=== PATIENT | female | born 1965 | race Caucasian/White ===

== ENCOUNTER 2023-12-29 15:20 | Inpatient (IN) ==
--- NOTE | 2023-12-29 16:17 | Emergency Department Note ---
Impression & Plan Suicidal ideations, Mood disorder, Paranoid ED Provider Note NAME: MANDY CAZARES AGE: 58 SEX: F : 1965 ARRIVES VIA: Walk-In INFORMANT: Patient ED PROVIDER(S): Ganesh Aggarwal DO CHIEF COMPLAINT: depression HPI: Patient is a 58-year-old female with MS who presents to the ER for suicidal ideations with a plan. She notes she has thought about it and would hang herself but she is not 100% sure she could go through with it. She admits to some auditory/visual hallucinations but will not elaborate anymore. She notes she has been depressed for several months but has gotten significant worse over the past 2 weeks. She saw her PCP today and was referred in here due to the suicidal statements. ADDITIONAL HISTORY OBTAINED: provides additional history and notes that patient admitted that she wanted to kill herself. Chronic Medical/Social Conditions Affecting Care: Per HPI PAST MEDICAL HISTORY:See Below PAST SURGICAL HISTORY:See Below FAMILY HISTORY:See Below SOCIAL HISTORY:See Below HOME MEDICATIONS:See Below ALLERGIES:See Below VITALS:See Below PHYSICAL EXAMINATION: GENERAL: Sitting up in bed, alert, well appearing, well nourished, no distress, non-toxic EYE EXAM: normal conjunctiva. OROPHARYNX: no exudate, no erythema, lips, buccal mucosa, and tongue normal and mucous membranes are moist NECK: supple, no nuchal rigidity, no adenopathy, non-tender LUNGS: Clear to auscultation. Normal chest wall mechanics HEART: no murmurs, S1 normal and S2 normal ABDOMEN: abdomen soft, non-tender, normo-active bowel sounds, no masses, no rebound or guarding. UPPER EXTREMITIES: upper extremities are grossly normal. LOWER EXTREMITIES: No pitting edema. NEURO EXAM: Normal sensorium, cranial nerves II-XII grossly intact, normal speech, no gross weakness of arms, no gross weakness of legs. PSYCH: Admits to suicidal ideations with a plan as described above as well as hallucinations. MEDICAL DECISION MAKING: Patient is a 58-year-old female who presents ER for above-stated complaint. Blood work was obtained and showed no significant leukocytosis or anemia. BMP with LFTs bilirubin and TSH was unremarkable. UA shows no infection. was negative. Tox was clean. Alcohol negative. Patient did not want to come in and did not believe that she needed inpatient treatment. She was evaluated by our psychiatric resident care aid. Patient was referred to 3 [facility]. and patient was accepted and admitted on a 302. Consults/Care Managements Discussions: Per MDM Triage Nursing notes reviewed. Limited review of prior medical records performed Vital Signs: reviewed and remarkable for hypertension Differential diagnosis: Mood disorder, infection, hypoglycemia, electrolyte abnormalities, cardiac sources, intracerebral event, toxicologic, trauma, neurologic, as well as other pathologies. ER treatment provided: See below Diagnostics interpreted by me include EKG and cardiac monitoring as listed below: -ECG: None -Laboratory studies:Interpreted by me as stated above in MDM and shown below. Imaging studies: Xrays: As interpreted by me: None CTs show: None Procedures: None Critical Care: None Past Med/Surg History Problem List (Updated 12/30/23 @ 17:16 by Charlene Jimenez MD) Unspecified psychosis not due to a substance or known physiological condition Paranoid (Acute) Mood disorder (Acute) Suicidal ideations (Acute) Insomnia (Acute) AMS (altered mental status) (Acute) KARAN positive Demyelinating disease Headache Neurologic gait disorder Cervical spinal stenosis Neuropathy Paresthesias Myelopathy Carpal tunnel syndrome, right Ulnar neuropathy at elbow of left upper extremity LGSIL on Pap smear of cervix Spondylolisthesis of lumbar region Lumbar radiculopathy Migraine headache (Acute) Neuropathy, peripheral (Chronic) Osteoarthritis (Acute) ASCUS with positive high risk HPV cervical (Acute) Multiple sclerosis Medical History Retinal detachment Surgical History History of cryosurgery History of dilatation and curettage History of wisdom tooth extraction Family History Mother Uterine cancer Denies family history of Ovarian cancer Breast cancer Colorectal cancer Social History Smoking Status: Never smoker Hx Alcohol Use: Yes Hx Substance Use: No Preferred Language: Norwegian Communication Ability: Effective Change Over Required: No Beliefs That Will Affect Care: None Current Living Situation: Spouse Feels Safe at Home: Yes Gender Identity: Female Assistive Devices: None Allergies Allergies Allergy/AdvReac Type Severity Reaction Status Date / Time Sulfa (Sulfonamide AdvReac Mild Verified 12/23/23 14:49 Antibiotics) Home Meds Home Medications Medication Instructions Recorded Confirmed melatonin 10 mg tablet 10 mg PO HS PRN Sleep 11/28/19 12/29/23 cholecalciferol (vitamin D3) 50 50 mcg PO DAILY 04/10/23 12/29/23 mcg (2,000 unit) capsule ocrelizumab 30 mg/mL intravenous 0 mg IV UD 12/22/23 12/29/23 solution (Ocrevus) omeprazole 20 mg capsule,delayed 20 mg PO DAILY 12/22/23 12/29/23 release zolpidem 10 mg tablet 10 mg PO HS PRN Sleep 12/22/23 12/29/23 trazodone 50 mg tablet 50 mg PO HS PRN insomnia 12/29/23 12/29/23 Results & Data (ED) Vital Signs Vital Signs - 24 hr 12/29/23 15:33 12/29/23 18:41 12/29/23 21:08 Temperature 36.8 C 36.4 C L Temperature Source Temporal Artery Scan Oral Pulse Rate 67 Pulse Rate [Apical] 66 90 Pulse Rhythm Regular Pulse Rhythm [Apical] Regular Pulse Strength Normal Pulse Strength [Apical] Normal Respiratory Rate 18 20 19 Respiratory Effort / Characteristics Non-Labored Spontaneous Non-Labored Spontaneous Non-Labored Spontaneous Respiratory Depth Normal Normal Normal Respiratory Pattern Regular Blood Pressure 140/78 Blood Pressure [Left Arm] 129/64 101/68 Blood Pressure Mean 98 Blood Pressure Mean [Left Arm] 85 79 Blood Pressure Position Sitting Pulse Oximetry 97 97 99 Oxygen Delivery Method Room Air Room Air Room Air Sepsis Recent Fever Within 48 Hours No Sepsis New/Unexplained Change in Mental Status No Sepsis Action Taken by Nursing No Action Required Laboratory Data 12/29/23 16:08 12/29/23 16:08 Lab Results 12/29/23 12/29/23 12/29/23 Range/Units 15:41 15:56 16:08 WBC 8.12 (4.8-10.8) K/ul RBC 5.54 H (4.20-5.40) M/uL Hgb 15.9 (12.0-16.0) g/dl Hct 49.0 H (37.0-47.0) % MCV 88.4 (80.0-100.0) fL MCH 28.7 (25.0-34.0) pg MCHC 32.4 (32.0-36.0) g/dL RDW Std Deviation 40.6 (36.4-46.3) fL RDW Coeff of Jeffrey 12.5 (11.5-14.5) % Plt Count 266 (130-400) K/uL MPV 12.3 (9.4-12.4) fL Immature Gran % (Auto) 0.4 % Neut % (Auto) 79.8 % Lymph % (Auto) 12.6 % [place] % (Auto) 6.5 % Eos % (Auto) 0.2 % Baso % (Auto) 0.5 % Neut # (Auto) 6.48 (1.40-6.50) K/uL Lymph # (Auto) 1.02 L (1.20-3.40) K/uL [place] # (Auto) 0.53 (0.11-0.59) K/uL Eos # (Auto) 0.02 (0.00-0.50) K/uL Baso # (Auto) 0.04 (0.00-0.20) K/uL Immature Gran # (Auto) 0.03 (0.01-0.20) K/uL Sodium 141 (136-145) mmol/L Potassium 3.8 (3.5-5.1) mmol/L Chloride 103 (98-107) mmol/L Carbon Dioxide 27 (21-32) mmol/L Anion Gap 11 (3-11) BUN 22 (6-23) mg/dl Creatinine 0.68 (0.6-1.2) mg/dl Est Cr Clr Drug Dosing 63.1 ml/min Est GFR ( Amer) 111.8 ml/min Est GFR (Non-Af Amer) 96.4 ml/min BUN/Creatinine Ratio 32.4 H (10-20) Glucose 79 (70-99(Fasting)) mg/dl Calcium 10.4 H (8.6-10.3) mg/dl Total Bilirubin 0.8 (0.2-1.0) mg/dl AST 17 (13-39) U/L ALT 17 (7-52) U/L Alkaline Phosphatase 43 (34-104) U/L Total Protein 7.7 (6.0-8.3) gm/dl Albumin 5.0 (3.4-5.0) gm/dl Globulin 2.7 (2.5-4.0) gm/dl Albumin/Globulin Ratio 1.9 (0.9-2) TSH 1.952 (0.300-4.500) uIu/ml Urine Color Yellow Urine Appearance Cloudy A (Clear) Urine pH 5.5 (4.5-7.5) Ur Specific [place] 1.033 H (1.000-1.030) Urine Protein Trace H (Negative) Urine Glucose (UA) Negative (Negative) Urine Ketones 2+ H (Negative) Urine Blood Negative (Negative) Urine Nitrite Negative (Negative) Urine Bilirubin Negative (Negative) Urine Urobilinogen Negative (Negative) Ur Leukocyte Esterase 1+ H (Negative) Urine WBC (Auto) 0-5 (0-5) /hpf Urine RBC (Auto) 0-2 (0-2) /hpf U Hyaline Cast (Auto) 3-5 H (0-2) /lpf U Epithel Cells (Auto) 3-5 H (0-2) /hpf Urine Bacteria (Auto) None Seen (None Seen) Urine Mucus Present A (None Prsent) POC Ur Test NEG (NEG) Salicylates < 3.0 L (3.0-30) mg/dl Urine Opiates Screen Neg (Neg) Ur Methadone, Qual Neg (Neg) Urine Fentanyl Screen Neg (Neg) Acetaminophen < 3 L (10-30) ug/ml Urine Barbiturates Neg (Neg) Ur Phencyclidine (PCP) Neg (Neg) U Amphetamin/Meth Scrn Neg (Neg) MDMA (Ecstasy) Screen Neg (Neg) U Benzodiazepines Scrn Neg (Neg) Ur Cocaine Metabolite Neg (Neg) U Marijuana (THC) Screen Neg (Neg) Ethyl Alcohol mg/dL < 10.0 (<10.0) mg/dl SARS-CoV-2, RNA, NAAT (NEGATIVE) 12/29/23 Range/Units 16:10 WBC (4.8-10.8) K/ul RBC (4.20-5.40) M/uL Hgb (12.0-16.0) g/dl Hct (37.0-47.0) % MCV (80.0-100.0) fL MCH (25.0-34.0) pg MCHC (32.0-36.0) g/dL RDW Std Deviation (36.4-46.3) fL RDW Coeff of Jeffrey (11.5-14.5) % Plt Count (130-400) K/uL MPV (9.4-12.4) fL Immature Gran % (Auto) % Neut % (Auto) % Lymph % (Auto) % [place] % (Auto) % Eos % (Auto) % Baso % (Auto) % Neut # (Auto) (1.40-6.50) K/uL Lymph # (Auto) (1.20-3.40) K/uL [place] # (Auto) (0.11-0.59) K/uL Eos # (Auto) (0.00-0.50) K/uL Baso # (Auto) (0.00-0.20) K/uL Immature Gran # (Auto) (0.01-0.20) K/uL Sodium (136-145) mmol/L Potassium (3.5-5.1) mmol/L Chloride (98-107) mmol/L Carbon Dioxide (21-32) mmol/L Anion Gap (3-11) BUN (6-23) mg/dl Creatinine (0.6-1.2) mg/dl Est Cr Clr Drug Dosing ml/min Est GFR ( Amer) ml/min Est GFR (Non-Af Amer) ml/min BUN/Creatinine Ratio (10-20) Glucose (70-99(Fasting)) mg/dl Calcium (8.6-10.3) mg/dl Total Bilirubin (0.2-1.0) mg/dl AST (13-39) U/L ALT (7-52) U/L Alkaline Phosphatase (34-104) U/L Total Protein (6.0-8.3) gm/dl Albumin (3.4-5.0) gm/dl Globulin (2.5-4.0) gm/dl Albumin/Globulin Ratio (0.9-2) TSH (0.300-4.500) uIu/ml Urine Color Urine Appearance (Clear) Urine pH (4.5-7.5) Ur Specific [place] (1.000-1.030) Urine Protein (Negative) Urine Glucose (UA) (Negative) Urine Ketones (Negative) Urine Blood (Negative) Urine Nitrite (Negative) Urine Bilirubin (Negative) Urine Urobilinogen (Negative) Ur Leukocyte Esterase (Negative) Urine WBC (Auto) (0-5) /hpf Urine RBC (Auto) (0-2) /hpf U Hyaline Cast (Auto) (0-2) /lpf U Epithel Cells (Auto) (0-2) /hpf Urine Bacteria (Auto) (None Seen) Urine Mucus (None Prsent) POC Ur Test (NEG) Salicylates (3.0-30) mg/dl Urine Opiates Screen (Neg) Ur Methadone, Qual (Neg) Urine Fentanyl Screen (Neg) Acetaminophen (10-30) ug/ml Urine Barbiturates (Neg) Ur Phencyclidine (PCP) (Neg) U Amphetamin/Meth Scrn (Neg) MDMA (Ecstasy) Screen (Neg) U Benzodiazepines Scrn (Neg) Ur Cocaine Metabolite (Neg) U Marijuana (THC) Screen (Neg) Ethyl Alcohol mg/dL (<10.0) mg/dl SARS-CoV-2, RNA, NAAT NEGATIVE (NEGATIVE) Administered Medications Hydroxyzine HCl (Hydroxyzine Hcl 25 Mg Tab) 50 mg PO HSZ PRN PRN Reason: Insomnia Stop: 01/28/24 23:58 Last Admin: 12/31/23 00:39 Dose: 50 mg Documented By: Admin: 12/30/23 01:59 Dose: 50 mg Documented By: Admin: 12/30/23 00:42 Dose: 50 mg Documented By: JENNIFER Pantoprazole Sodium (Pantoprazole 40 Mg Tab) 40 mg PO DAILY [facility] Stop: 01/29/24 09:29 Last Admin: 12/31/23 08:44 Dose: 40 mg Documented By: Admin: 12/30/23 10:11 Dose: 40 mg Documented By: [email or web address] Risperidone (Risperidone 0.5 Mg Tablet) 0.5 mg PO BID CLAU Stop: 01/29/24 20:59 Last Admin: 12/30/23 20:24 Dose: 0.5 mg Documented By: VIDA Sertraline HCl (Sertraline Hcl 50 Mg Tablet) 50 mg PO QAM CLAU Stop: 01/30/24 08:59 Last Admin: 12/31/23 08:45 Dose: 50 mg Documented By: ZACK Vitamin D (Cholecalciferol 25 Mcg (1000 Units) Tab) 50 mcg PO DAILY CLAU Stop: 01/29/24 09:29 Last Admin: 12/31/23 08:44 Dose: 50 mcg Documented By: Admin: 12/30/23 10:11 Dose: 50 mcg Documented By: MUKESH Discharge Plan Visit Data Chief Complaint: Mental Health Evaluation Stated Complaint: REF BY DOC FOR E ED Provider: Ganesh Aggarwal Discharge Problem: Suicidal ideations, Mood disorder, Paranoid Patient Disposition: Admitted As Inpatient Discharge Instructions Interventions: ED Discharge Assessment Last Done: 12/29/23 23:30
[2023-12-29 16:28] LABS: Basophils # (auto) 0.04 K/uL (0.00-0.20); Basophils % (auto) 0.5 %; Eosinophils # (auto) 0.02 K/uL (0.00-0.50); Eosinophils % (auto) 0.2 %; Hemoglobin 15.9 g/dl (12.0-16.0); Immature Granulocytes # (auto) 0.03 K/uL (0.01-0.20); Immature Granulocytes % (auto) 0.4 %; Lymphocytes # (auto) 1.02 K/uL (1.20-3.40); Lymphocytes % (auto) 12.6 %; Mean Corpuscular Hemoglobin 28.7 pg (25.0-34.0); Mean Corpuscular Hgb Conc 32.4 g/dL (32.0-36.0); Mean Corpuscular Volume 88.4 fL (80.0-100.0); Mean Platelet Volume 12.3 fL (9.4-12.4); Monocytes # (auto) 0.53 K/uL (0.11-0.59); Monocytes % (auto) 6.5 %; Neutrophils # (auto) 6.48 K/uL (1.40-6.50); Neutrophils % (auto) 79.8 %; Platelet Count 266 K/uL (130-400); RDW Coefficient of Variation 12.5 % (11.5-14.5); RDW Standard Deviation 40.6 fL (36.4-46.3); Red Blood Count 5.54 M/uL (4.20-5.40); White Blood Count 8.12 K/ul (4.8-10.8)
[2023-12-29 16:30] LABS: Appearance Urine Cloudy (Clear); Bacteria Urine Automated None Seen (None Seen); Bilirubin Urine Negative (Negative); Blood Urine Negative (Negative); Color Urine Yellow; Glucose Urine UA Negative (Negative); Ketones Urine 2+ (Negative); Leukocyte Esterase Urine 1+ (Negative); Mucus Urine Present (None Prsent); Nitrite Urine Negative (Negative); Protein Urine Trace (Negative); RBC Urine Automated 0-2 /hpf (0-2); Specific Gravity Urine 1.033 (1.000-1.030); Urobilinogen Urine Negative (Negative); WBC Urine Automated 0-5 /hpf (0-5); pH Urine 5.5 (4.5-7.5)
[2023-12-29 16:35] LABS: Bilirubin,Total 0.8 mg/dl (0.2-1.0); Calcium 10.4 mg/dl (8.6-10.3); Potassium 3.8 mmol/L (3.5-5.1)
[2023-12-29 16:41] LABS: Acetaminophen < 3 ug/ml (10-30); Albumin Globulin Ratio 1.9 (0.9-2); BUN Creatinine Ratio 32.4 (10-20); Creatinine Clr Calc Pharmacy 63.1 ml/min; Est GFR (African American) 111.8 ml/min; Est GFR (Non-African American) 96.4 ml/min; Globulin 2.7 gm/dl (2.5-4.0); Salicylate < 3.0 mg/dl (3.0-30); Total Protein 7.7 gm/dl (6.0-8.3)
[2023-12-29 16:54] LABS: Thyroid Stimulating Hormone 1.952 uIu/ml (0.300-4.500)
[2023-12-29 17:04] LABS: Amphetamines+Metham, Urine Neg (Neg); Barbiturates, Urine Neg (Neg); Benzodiazepine, Urine Neg (Neg); Cocaine, Urine Neg (Neg); Fentanyl, Urine Neg (Neg); MDMA (Ecstacy), Urine Neg (Neg); Marijuana, Urine Neg (Neg); Methadone, Urine Neg (Neg); Opiate, Urine Neg (Neg); Phencyclidine, Urine Neg (Neg)
[2023-12-29] MEDS ORDERED: BISMUTH SUBSALICYLATE LIQD 236 ML PO PRN (23:59)
[2023-12-29] MEDS ORDERED: SODIUM CHLORIDE 0.65% NA SOLN 45 ML (OCEAN) PRN (23:59)
[2023-12-29] MEDS ORDERED: MAGNESIUM HYDROXIDE SUSP 30 ML UDC PO PRN (23:59)
[2023-12-29] MEDS ORDERED: ALUMINUM/MAGNESIUM SUSP 30 ML UDC PO PRN (23:59)
[2023-12-29] MEDS ORDERED: hydrOXYzine HCl 25 MG TAB PO PRN (23:59)
[2023-12-30] MEDS: hydrOXYzine HCl 25 MG TAB PO PRN (00:42)
[2023-12-30] MEDS ORDERED: OLANZapine 5 MG TABLET PO PRN ×2 (06:46→14:32)
--- NOTE | 2023-12-30 08:57 | History & Physical ---
Date of Service December 30, 2023 Impression / Recommendations Impression ANTONIETTA CAZARES is a 58-year-old woman who currently lives in [place] with her , has a history of insomnia, anxiety, depression, MS, and was admitted on 12/29/23 23:33 on a 302 involuntary commitment for mood changes with SI with plan and paranoia. Diagnostically consistent with unspecified psychosis with differential including major depressive disorder with psychotic features (especially given prominence of persecutory delusions) vs 2/2 Multiple Sclerosis vs primary psychotic disorder (family hx of schizophrenia but less likely given age with no known hx of psychosis/paranoia) vs BPAD current mixed episode given depression but also with poor sleep and increased paranoia. Discussed medication treatment options in detail. Discussed risks, benefits and alternatives. Recommended initiation of sertraline for suspected depression and risperidone for paranoia/psychosis. She is willing to start sertraline but unsure about risperidone. Discussed that I would schedule it and she can refuse if she chooses to. Spent a long time discussing risks/benefits/side effects for risperidone and olanzapine. She remained unsure, discussed option for her to further review medication side effects based on handout from RNs. Ultimately stated she may consider trying risperidone tonight. Reviewed side effects including but not limited to: GI, CHAVES with sertraline; movement (TD, NMS), cardiac (QTc prolongation), and metabolic (stroke, insulin resistance) and necessity for fasting lipid and glucose labwork (will hold off for 1-2 days until she can better tolerate this) and AIMS done with score of 0. MNPR due to significant paranoia, unable to tolerate a roommate Overall I spent a total of 80 minutes for this admission including review of chart records, review of labwork, direct evaluation of the patient, counseling the patient, ordering medication, risk assessment, discussion with the psychiatric liason RN and documentation in the electronic health record. (1) Unspecified psychosis not due to a substance or known physiological condition: (2) Paranoid: (3) Suicidal ideations: (4) Insomnia: Insomnia type: unspecified Qualified Code(s): G47.00 - Insomnia, unspecified (5) Multiple sclerosis: Plan 12/30/2023: The patient was admitted to the [facility] ([facility] mental health unit) on q15 min checks (behavioral with suicide precautions) for safety. The patient will participate in group, recreational, and milieu therapies and will be offered additional individual and family sessions as clinically appropriate. -Star sertraline 50mg qd -Start risperidone 0.5mg BID and additional 0.5mg BID prn -Fasting glucose and lipid panel in 1-2 days when she can better tolerate this -Elopement precautions Inventory Assets Strengths: supportive relationships Needs: safety and stabilization, medication adjustment, additional coping skills, increased outpatient services Suicide Risk Level Suicide Risk Level: High-Moderate (q15 min suicide checks) (psychosis with depression and SI, feels safe in the hospital, feels able to ask for support if needed ) Suicide Risk Level Comments: Risk Factors Assessment Male: No : Yes Do You Have Access To A Gun?: No Health Problems: Yes (MS) Mental Health Diagnoses: Yes Substance Use Disorders: No Previous Attempt: No Family History of Suicide: No Previous Psychiatric Hospitalization: No Hopelessness: Yes Protective Factors Assessment : Yes Employed: No (on disability) Stable Relationships: Yes Supportive Family: Yes Psychiatric History Identifying Data ANTONIETTA CAZARES is a 58-year-old woman who currently lives in [place] with her , has a history of insomnia, anxiety, depression, MS, and was admitted on 12/29/23 23:33 on a 302 involuntary commitment for mood changes with SI with plan and paranoia. Chief Complaint "I feel like I'm in trouble". History of Present Illness Antonietta presents after her and primary care provider encouraged her to come to the hospital for worsening depression with SI with possible plan of hanging herself as well as increased paranoia and poor sleep. Additional recent history per ED CM note from 12/29/2023: "Pts report that approximately 2 weeks ago they traveled to [facility]. He states that the day they left patient started acting very paranoid and suspicious. She refused to go through security at the airport. She felt like she was being set up. states that they travel frequently so she is very familiar with the airport process. He reports that when they got to [facility] patient refused to leave their room. She would not go to dinner, wouldnt go on any excursions, and did not sleep at all. He states that getting her home was an even bigger challenge. Pt refused to put her purse and belongings through the security scanner and created a huge scene and 3 security workers from [employer] became involved. When they returned home pts called her neurologist. Pt was dx with MS in Mar [address] Sotelo. An appointment could not be obtained right away so pt came to the ER. She then saw Dr Sotelo the next day. Pt was cleared at the ER and with Dr Sotelo who did not think it was related to her MS or treatment. He attributed the behaviors to lack of sleep. (This was approx. one week ago). Pt has continued to become more paranoid and still is not sleeping. Yesterday she told her husbands juvenile detention officer that she wanted to hang herself. She has also been making statements like I dont want to be here anymore Everyone would be happier and could move on with their lives if I wasnt here. Pt admits to saying these things and when asked further questions she becomes upset and says this is so crazy I was raised that you dont do that. Pt appears to be having difficulty processing questions asked. Pt admits that she thinks this (being in the ER) is a set up. She states there is more going on here than what I am thinking. She has no mental health history prior to this episode. Pt has had significant stressors in the past year. Her father , she was diagnosed with MS and her job was eliminated. 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 Pt's is very much in favor of patient being admitted for psychiatric treatment. Pt is hesitant and states "I don't think it is necessary or a good idea"." She struggles to engage in the interview with me today due to significant thought blocking. She describes struggling to complete some basic paperwork, an assessment of her interests and coping skills, which typically would be easy for her to do. She recognizes this is a change from her baseline but isn't as sure about depression or paranoia being something she's been dealing with. Rather describes her concerns as "I'm just not happy with who I am", when asked to elaborate she struggles to provide any further context to this statement. Makes other vague statements such as "I don't have a full understanding of what all is happening". Asked about her recent statements of SI, she verifies this though today states she doesn't think she would ever act on these thoughts, but cannot explain why not nor what seems to be driving the suicidal thoughts. She does identify struggling more with sleep recently, and agrees it's possible she may be depressed. She doesn't identify having a poor appetite but reportedly hasn't been eating much. In discussing her recent struggles at the airport and labeling my concern that this represents paranoia or psychosis she isn't sure about this. She acknowledges why others are concerned about paranoid but notes "there's more going on here" and expands as "some bigger thing at play". She states "I feel like I'm in trouble" but cannot describe this further. She is currently prescribed psychiatric medications of Ambien 10mg and trazodone 50mg HS prn for sleep. Psychiatric ROS unable to be assessed fully given thought blocking. Past Psychiatric History Current Psychiatric Diagnosis: Unspecified Depressive Disorder Outpatient Services: none currently Previous Psych Admissions: none Do You Have Access To A Gun?: No History of Previous Suicide Attempt: No Past Medication Trials: recalls Cymbalta and Effexor in the past for neuropathic pain and possibly also for anxiety/depression? She doesn't think they were helpful Allergies Allergy/AdvReac Type Severity Reaction Status Date / Time Sulfa (Sulfonamide AdvReac Mild Verified 12/23/23 14:49 Antibiotics) Home Medications Medication Instructions Recorded Confirmed Type melatonin 10 mg tablet 10 mg PO HS PRN Sleep 11/28/19 12/29/23 History cholecalciferol (vitamin D3) 50 50 mcg PO DAILY 04/10/23 12/29/23 History mcg (2,000 unit) capsule ocrelizumab 30 mg/mL intravenous 0 mg IV UD 12/22/23 12/29/23 History solution (Ocrevus) omeprazole 20 mg capsule,delayed 20 mg PO DAILY 12/22/23 12/29/23 History release zolpidem 10 mg tablet 10 mg PO HS PRN Sleep 12/22/23 12/29/23 History trazodone 50 mg tablet 50 mg PO HS PRN insomnia 12/29/23 12/29/23 History Family History Family History of: Depression, Anxiety, Psychosis/ThoughtDisorder and Bipolar Family Mental Health History Comment: Brother - Schizophrenia Alcohol History Hx of Alcohol Use Over the Past 12 Months: Yes (Social drinking) AUDIT Total Score: 3 Smoking Use Smoking Status: Never smoker Substance History Hx of Prescription Med Misuse Over the Past 12 Months: No Hx of Over the Counter Med Misuse Over the Past 12 Months: No Hx of Inhalent Misuse Over the Past 12 Months: No Hx of Organic Substance Use Over the Past 12 Months: No Hx of Illegal Substances/Street Drug Use Over Past 12 Months: No Problems as a Result of Past Substance Use Comments: NONE Personal History Living Arrangements: Home Highest Grade Completed: Graduate School ([place]) Employment Status: Disabled Marital Status: Beliefs That Will Affect Care: None Current Legal Problems: No Hx Legal Problems: No Patient History Medical History Retinal detachment Surgical History History of cryosurgery History of dilatation and curettage History of wisdom tooth extraction Family History Mother Uterine cancer Denies family history of Ovarian cancer Breast cancer Colorectal cancer Social History Smoking Status: Never smoker Hx Alcohol Use: Yes Hx Substance Use: No Preferred Language: Cymraes Communication Ability: Effective Apron Man Required: No Beliefs That Will Affect Care: None Current Living Situation: Spouse Feels Safe at Home: Yes Gender Identity: Female Assistive Devices: None Review of Systems Review of Systems: All systems reviewed & are unremarkable except as noted in HPI & below Physical Exam Psychiatric: Orientation: alert and oriented x 3 Apperance: appropriately dressed and appropriately groomed Eye Contact: good eye contact Motor Behavior: no abnormal motor movements Speech: normal rate/rhythm/volume of speech Affect: + flat affect Mood: + depressed mood and + anxious mood Thought Process: + thought blocking and + perseveration Thought Content: + preoccupation, + delusions and + persecution Suicidal Thoughts: denies suicidal plan (none for hospital) and denies suicidal intent; + reports suicidal thoughts Homicidal Thoughts: denies homicidal thoughts Hallucinations: + auditory hallucinations (unclear, reported in ED); no visual hallucinations Cognition: recent memory grossly intact, remote memory grossly intact and language grossly intact; + attention not intact Estimated Intelligence: consistent with education level Insight: + poor insight Judgment: + limited judgement Vital Signs (Past 24 Hours): Last Vital Signs Temp 36.4 C L 12/30/23 00:41 Pulse 72 12/30/23 00:41 Resp 18 12/30/23 00:41 BP 121/80 12/30/23 00:41 Pulse Ox 99 12/30/23 00:41 O2 Del Method Room Air 12/30/23 00:41 Exam Statement: A physical exam was performed in the ED by Dr. Aggarwal for the purposes of medical clearance. I accept that physical as correct and adequate for the purposes of the inpatient physical exam. Results & Data ([facility]) Laboratory Results Laboratory Results - last 24 hr 12/29/23 12/29/23 12/29/23 15:41 15:56 16:08 WBC 8.12 RBC 5.54 H Hgb 15.9 Hct 49.0 H MCV 88.4 MCH 28.7 MCHC 32.4 RDW Std Deviation 40.6 RDW Coeff of Jeffrey 12.5 Plt Count 266 MPV 12.3 Immature Gran % (Auto) 0.4 Neut % (Auto) 79.8 Lymph % (Auto) 12.6 [place] % (Auto) 6.5 Eos % (Auto) 0.2 Baso % (Auto) 0.5 Neut # (Auto) 6.48 Lymph # (Auto) 1.02 L [place] # (Auto) 0.53 Eos # (Auto) 0.02 Baso # (Auto) 0.04 Immature Gran # (Auto) 0.03 Sodium 141 Potassium 3.8 Chloride 103 Carbon Dioxide 27 Anion Gap 11 BUN 22 Creatinine 0.68 Est Cr Clr Drug Dosing 63.1 Est GFR ( Amer) 111.8 Est GFR (Non-Af Amer) 96.4 BUN/Creatinine Ratio 32.4 H Glucose 79 Calcium 10.4 H Total Bilirubin 0.8 AST 17 ALT 17 Alkaline Phosphatase 43 Total Protein 7.7 Albumin 5.0 Globulin 2.7 Albumin/Globulin Ratio 1.9 TSH 1.952 Urine Color Yellow Urine Appearance Cloudy A Urine pH 5.5 Ur Specific [place] 1.033 H Urine Protein Trace H Urine Glucose (UA) Negative Urine Ketones 2+ H Urine Blood Negative Urine Nitrite Negative Urine Bilirubin Negative Urine Urobilinogen Negative Ur Leukocyte Esterase 1+ H Urine WBC (Auto) 0-5 Urine RBC (Auto) 0-2 U Hyaline Cast (Auto) 3-5 H U Epithel Cells (Auto) 3-5 H Urine Bacteria (Auto) None Seen Urine Mucus Present A POC Ur Test NEG Salicylates < 3.0 L Urine Opiates Screen Neg Ur Methadone, Qual Neg Urine Fentanyl Screen Neg Acetaminophen < 3 L Urine Barbiturates Neg Ur Phencyclidine (PCP) Neg U Amphetamin/Meth Scrn Neg MDMA (Ecstasy) Screen Neg U Benzodiazepines Scrn Neg Ur Cocaine Metabolite Neg U Marijuana (THC) Screen Neg Ethyl Alcohol mg/dL < 10.0 SARS-CoV-2, RNA, NAAT 12/29/23 16:10 WBC RBC Hgb Hct MCV MCH MCHC RDW Std Deviation RDW Coeff of Jeffrey Plt Count MPV Immature Gran % (Auto) Neut % (Auto) Lymph % (Auto) [place] % (Auto) Eos % (Auto) Baso % (Auto) Neut # (Auto) Lymph # (Auto) [place] # (Auto) Eos # (Auto) Baso # (Auto) Immature Gran # (Auto) Sodium Potassium Chloride Carbon Dioxide Anion Gap BUN Creatinine Est Cr Clr Drug Dosing Est GFR ( Amer) Est GFR (Non-Af Amer) BUN/Creatinine Ratio Glucose Calcium Total Bilirubin AST ALT Alkaline Phosphatase Total Protein Albumin Globulin Albumin/Globulin Ratio TSH Urine Color Urine Appearance Urine pH Ur Specific [place] Urine Protein Urine Glucose (UA) Urine Ketones Urine Blood Urine Nitrite Urine Bilirubin Urine Urobilinogen Ur Leukocyte Esterase Urine WBC (Auto) Urine RBC (Auto) U Hyaline Cast (Auto) U Epithel Cells (Auto) Urine Bacteria (Auto) Urine Mucus POC Ur Test Salicylates Urine Opiates Screen Ur Methadone, Qual Urine Fentanyl Screen Acetaminophen Urine Barbiturates Ur Phencyclidine (PCP) U Amphetamin/Meth Scrn MDMA (Ecstasy) Screen U Benzodiazepines Scrn Ur Cocaine Metabolite U Marijuana (THC) Screen Ethyl Alcohol mg/dL SARS-CoV-2, RNA, NAAT NEGATIVE Current Inpatient Medications Current Inpatient Medications: Current Inpatient Medications Acetaminophen (Acetaminophen 325 Mg Tab) 650 mg PO Q4H PRN PRN Reason: Headache or Minor Fever Stop: 01/28/24 23:58 Al Hydrox/Mg Hydrox/Simethicone (Aluminum/Magnesium Susp 30 Ml Udc) 30 ml PO Q4H PRN PRN Reason: GI Upset Stop: 01/28/24 23:58 Bismuth Subsalicylate (Bismuth Subsalicylate Liqd 236 Ml) 15 ml PO PRN PRN PRN Reason: Loose Stool Stop: 01/28/24 23:58 Hydroxyzine HCl (Hydroxyzine Hcl 25 Mg Tab) 50 mg PO HSZ PRN PRN Reason: Insomnia Stop: 01/28/24 23:58 Last Admin: 12/30/23 01:59 Dose: 50 mg Hydroxyzine HCl (Hydroxyzine Hcl 25 Mg Tab) 25 mg PO Q4H PRN PRN Reason: Anxiety Stop: 01/28/24 23:58 Magnesium Hydroxide (Magnesium Hydroxide Susp 30 Ml Udc) 30 ml PO DAILY PRN PRN Reason: Constipation Stop: 01/28/24 23:58 Olanzapine (Olanzapine 5 Mg Tablet) 5 mg PO HS PRN PRN Reason: Anxiety/Agitation Stop: 01/29/24 21:59 Sodium Chloride (Sodium Chloride 0.65% Na Soln 45 Ml ([place])) 1 - 2 sprays NA PRN PRN PRN Reason: Nasal Dryness/Congestion Stop: 01/28/24 23:58
[2023-12-30] MEDS: CHOLECALCIFEROL 25 MCG (1000 UNITS) TAB PO SCH (10:11)
[2023-12-30] MEDS: PANTOprazole 40 MG TAB PO SCH (10:11)
[2023-12-30] MEDS ORDERED: risperiDONE 0.5 MG TABLET PO PRN (14:31)
[2023-12-30] MEDS: risperiDONE 0.5 MG TABLET PO SCH (20:24)
[2023-12-31 06:26] VITALS: RESP 16; O2SAT 97
--- NOTE | 2023-12-31 08:41 | Psychiatric Progress Note ---
Date of Service December 31, 2023 Impression / Recommendations Impression MANDY CAZARES is a 58-year-old woman who currently lives in [place] with her , has a history of insomnia, anxiety, depression, MS, and was admitted on 12/29/23 23:33 on a 302 involuntary commitment for mood changes with SI with plan and paranoia. Diagnostically consistent with unspecified psychosis with differential including major depressive disorder with psychotic features (especially given prominence of persecutory delusions) vs 2/2 Multiple Sclerosis vs primary psychotic disorder (family hx of schizophrenia but less likely given age with no known hx of psychosis/paranoia) vs BPAD current mixed episode given depression but also with poor sleep and increased paranoia. A: Ongoing thought blocking, paranoia, delusions. She declined AM risperdal but agreeable to trying it again tonight alongside Ambien which has worked well for sleep for her for many years. Completed 303 paperwork, hearing scheduled for tomorrow. MNPR due to significant paranoia, unable to tolerate a roommate Overall, I spent a total of 45 minutes on this case including meeting with the patient, reviewing the chart, nursing report, multidisciplinary team meeting, orders, 303 paperwork, and documentation. (1) Unspecified psychosis not due to a substance or known physiological condition: (2) Paranoid: (3) Suicidal ideations: (4) Insomnia: (5) Multiple sclerosis: Plan 12/31/2023: -risperidone 1mg HS -restart [employer] ambien 10mg HS 12/30/2023: The patient was admitted to the [facility] ([facility] mental health unit) on q15 min checks (behavioral with suicide precautions) for safety. The patient will participate in group, recreational, and milieu therapies and will be offered additional individual and family sessions as clinically appropriate. -Star sertraline 50mg qd -Start risperidone 0.5mg BID and additional 0.5mg BID prn -Fasting glucose and lipid panel in 1-2 days when she can better tolerate this -Elopement precautions Inventory Assets Strengths: supportive relationships Needs: safety and stabilization, medication adjustment, additional coping skills, increased outpatient services Suicide Risk Level Suicide Risk Level: High-Moderate (q15 min suicide checks) (psychosis with depression and SI, feels safe in the hospital, feels able to ask for support if needed ) Suicide Risk Level Comments: Risk Factors Assessment Male: No : Yes Do You Have Access To A Gun?: No Health Problems: Yes (MS) Mental Health Diagnoses: Yes Substance Use Disorders: No Previous Attempt: No Family History of Suicide: No Previous Psychiatric Hospitalization: No Hopelessness: Yes Protective Factors Assessment : Yes Employed: No (on disability) Stable Relationships: Yes Supportive Family: Yes Interval History Identifying Information MANDY CAZARES is a 58-year-old woman who currently lives in [place] with her , has a history of insomnia, anxiety, depression, MS, and was admitted on 12/29/23 23:33 on a 302 involuntary commitment for mood changes with SI with plan and paranoia. Chief Complaint "I'm doing ok, struggling to fill out these forms". Review of Systems Sleep Information Total Hours of Sleep: 5 Sleep Comments: Given PRN Vistaril at 0040 Meal Information Percent Meal Consumed - Breakfast: 0 Percent Meal Consumed - Lunch: 85 Percent Meal Consumed - Dinner: 55 Subjective Subjective Patient was seen & assessed and interval progress reviewed with treatment team nursing and social work. Took her about 1.5 hours to complete the TR sheet only to then ask for a new one. Laughing inappropriately at times. Rated her mood as "overwhelmed" last evening. Largely isolative to her room. Did shower. She did take one dose of risperidone. Struggling to complete forms on self-care activities. Feels like she has some brain fog today. She's not sure if it's from risperidone or Vistaril that she took last night. Struggled to sleep. Today continues to have the feeling that "something bigger is going on", feels like she's being "set up". References fact that construction workers are just outside the unit as evidence of things being off. Discussed plan that I would be filing for 303 since her 302 expires on a Thursday. She was understanding of this but also feels her life "is out of control". Worries that she is in financial trouble, doesn't have confidence despite my reassurance that her insurance is covering this admission so far. Physical Exam Psychiatric Orientation: alert and oriented x 3 Apperance: appropriately dressed and appropriately groomed Eye Contact: good eye contact Motor Behavior: no abnormal motor movements Speech: normal rate/rhythm/volume of speech Affect: + flat affect Mood: + depressed mood and + anxious mood Thought Process: + thought blocking and + perseveration Thought Content: + preoccupation, + delusions and + persecution Suicidal Thoughts: denies suicidal plan (none for hospital) and denies suicidal intent; + reports suicidal thoughts (intermittent) Homicidal Thoughts: denies homicidal thoughts Hallucinations: + auditory hallucinations (unclear, reported in ED); no visual hallucinations Cognition: recent memory grossly intact, remote memory grossly intact and language grossly intact; + attention not intact Estimated Intelligence: consistent with education level Insight: + poor insight Judgment: + limited judgement Vital Signs (Past 24 Hours) Last Vital Signs Temp 36.2 C L 12/31/23 06:25 Pulse 78 12/31/23 06:25 Resp 16 12/31/23 06:25 BP 122/88 12/31/23 06:25 Pulse Ox 97 12/31/23 06:25 O2 Del Method Room Air 12/31/23 06:25 Results & Data ([facility]) Current Inpatient Medications Current Inpatient Medications: Current Inpatient Medications Acetaminophen (Acetaminophen 325 Mg Tab) 650 mg PO Q4H PRN PRN Reason: Headache or Minor Fever Stop: 01/28/24 23:58 Al Hydrox/Mg Hydrox/Simethicone (Aluminum/Magnesium Susp 30 Ml Udc) 30 ml PO Q4H PRN PRN Reason: GI Upset Stop: 01/28/24 23:58 Bismuth Subsalicylate (Bismuth Subsalicylate Liqd 236 Ml) 15 ml PO PRN PRN PRN Reason: Loose Stool Stop: 01/28/24 23:58 Hydroxyzine HCl (Hydroxyzine Hcl 25 Mg Tab) 50 mg PO HSZ PRN PRN Reason: Insomnia Stop: 01/28/24 23:58 Last Admin: 12/31/23 00:39 Dose: 50 mg Hydroxyzine HCl (Hydroxyzine Hcl 25 Mg Tab) 25 mg PO Q4H PRN PRN Reason: Anxiety Stop: 01/28/24 23:58 Magnesium Hydroxide (Magnesium Hydroxide Susp 30 Ml Udc) 30 ml PO DAILY PRN PRN Reason: Constipation Stop: 01/28/24 23:58 Olanzapine (Olanzapine 5 Mg Tablet) 5 mg PO HS PRN PRN Reason: Psychosis/Agitation Stop: 01/29/24 21:59 Pantoprazole Sodium (Pantoprazole 40 Mg Tab) 40 mg PO DAILY CLAU Stop: 01/29/24 09:29 Last Admin: 12/30/23 10:11 Dose: 40 mg Risperidone (Risperidone 0.5 Mg Tablet) 0.5 mg PO BID PRN PRN Reason: psychosis/agitation/paranoia Stop: 01/29/24 14:30 Risperidone (Risperidone 0.5 Mg Tablet) 0.5 mg PO BID CLAU Stop: 01/29/24 20:59 Last Admin: 12/30/23 20:24 Dose: 0.5 mg Sertraline HCl (Sertraline Hcl 50 Mg Tablet) 50 mg PO QAM CLAU Stop: 01/30/24 08:59 Sodium Chloride (Sodium Chloride 0.65% Na Soln 45 Ml ([place])) 1 - 2 sprays NA PRN PRN PRN Reason: Nasal Dryness/Congestion Stop: 01/28/24 23:58 Vitamin D (Cholecalciferol 25 Mcg (1000 Units) Tab) 50 mcg PO DAILY CLAU Stop: 01/29/24 09:29 Last Admin: 12/30/23 10:11 Dose: 50 mcg Mental Health & Subst Abuse Tx Therapist Name of Therapist: None Supervisor Print Line Name of Supervisor Print Line: None Post Discharge Appointments Primary Care Physician Name Of Family Doctor/PCP: Batsheva Looney (4) Insomnia Insomnia type: unspecified Qualified Code(s): G47.00 - Insomnia, unspecified
[2023-12-31] MEDS: SERTRALINE HCL 50 MG TABLET PO SCH (08:45)
[2023-12-31] MEDS: risperiDONE 1 MG TABLET PO SCH (21:05)
[2023-12-31] MEDS: ZOLPIDEM TARTRATE 5 MG TAB PO PRN (22:55)
--- NOTE | 2024-01-01 09:21 | Psychiatric Progress Note ---
Date of Service January 01, 2024 Impression / Recommendations Impression MANDY CAZARES is a 58-year-old woman who currently lives in [place] with her , has a history of insomnia, anxiety, depression, MS, and was admitted on 12/29/23 23:33 on a 302 involuntary commitment for mood changes with SI with plan and paranoia. Diagnostically consistent with unspecified psychosis with differential including major depressive disorder with psychotic features (especially given prominence of persecutory delusions) vs 2/2 Multiple Sclerosis vs primary psychotic disorder (family hx of schizophrenia but less likely given age with no known hx of psychosis/paranoia) vs BPAD current mixed episode given depression but also with poor sleep and increased paranoia. Now on a 303 commitment as of 01/01/2024. A: Slightly less ruminations and thought blocking today but still fairly sparse thought content. She denied thoughts of suicide today but unclear how much depression is leading to thought blocking and possible SI given her difficulty speaking about recent and current symptoms. She did have improved sleep last night and is tolerating risperidone. Will get fasting labs in the AM. 303 commitment granted. MNPR due to significant paranoia, unable to tolerate a roommate Overall, I spent a total of 55 minutes on this case including meeting with the patient, reviewing the chart, nursing report, multidisciplinary team meeting, orders, 303 commitment hearing, and documentation. (1) Unspecified psychosis not due to a substance or known physiological condition: (2) Paranoid: (3) Suicidal ideations: (4) Insomnia: (5) Multiple sclerosis: Plan 01/01/2024: Continue current medications and tx plan. Fasting labwork in the AM. 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 The patient will participate in group, recreational, and milieu therapies and will be offered additional individual and family sessions as clinically appropriate. 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, now denying SI, feels safe in the hospital, feels able to ask for hall pport if needed ) Suicide Risk Level Comments: Risk Factors Assessment Male: No : Yes Do You Have Access To A Gun?: No Health Problems: Yes (MS) Mental Health Diagnoses: Yes Substance Use Disorders: No Previous Attempt: No Family History of Suicide: No Previous Psychiatric Hospitalization: No Hopelessness: Yes Protective Factors Assessment : Yes Employed: No (on disability) Stable Relationships: Yes Supportive Family: Yes Interval History Identifying Information MANDY CAZARES is a 58-year-old woman who currently lives in [place] with her , has a history of insomnia, anxiety, depression, MS, and was admitted on 12/29/23 23:33 on a 302 involuntary commitment for mood changes with SI with plan and paranoia. Chief Complaint "I don't feel fully able to focus but could be the nerves". Review of Systems Sleep Information Total Hours of Sleep: 5.5 Sleep Comments: Given PRN Vistaril at 0040 Meal Information Percent Meal Consumed - Breakfast: 75 Percent Meal Consumed - Lunch: 75 Percent Meal Consumed - Dinner: 30 Subjective Subjective Patient was seen & assessed and interval progress reviewed with treatment team nursing and social work. Ongoing paranoia, seems to think something else or bigger is going on. Very focused on 303 hearing yesterday evening. Called public health teacher this morning. Struggles with processing groups, participated in act [employer] group. Anxious and tearful at times yesterday evening. visited which went well. Took the risperidone last evening. Today reported feeling more rested, got about 5.5 hours of sleep. She tolerated the risperidone last night and is ok continuing with this. Was very anxious this morning in anticipation of the 303 hearing. She participated in the hearing and reported that she feels she would be safe at home and in the outpatient setting. She denies any concerns today, still feels the sense that something else bigger is going on. No symptoms related to increased HR this morning. Physical Exam Psychiatric Orientation: alert and oriented x 3 Apperance: appropriately dressed and appropriately groomed Eye Contact: good eye contact Motor Behavior: no abnormal motor movements Speech: normal rate/rhythm/volume of speech Affect: + flat affect Mood: + depressed mood and + anxious mood Thought Process: + thought blocking and + perseveration Thought Content: + preoccupation, + delusions and + persecution Suicidal Thoughts: denies suicidal plan (none for hospital) and denies suicidal intent; + reports suicidal thoughts (intermittent, denied during hearing) Homicidal Thoughts: denies homicidal thoughts Hallucinations: no auditory hallucinations and no visual hallucinations Cognition: recent memory grossly intact, remote memory grossly intact and language grossly intact; + attention not intact Estimated Intelligence: consistent with education level Insight: + limited insight Judgment: + fair judgement Vital Signs (Past 24 Hours) Last Vital Signs Temp 35.5 C L 01/01/24 06:00 Pulse 115 H 01/01/24 06:32 Resp 16 01/01/24 06:00 BP 109/61 01/01/24 06:32 Pulse Ox 97 12/31/23 06:25 O2 Del Method Room Air 12/31/23 06:25 Results & Data ([facility]) Current Inpatient Medications Current Inpatient Medications: Current Inpatient Medications Acetaminophen (Acetaminophen 325 Mg Tab) 650 mg PO Q4H PRN PRN Reason: Headache or Minor Fever Stop: 01/28/24 23:58 Al Hydrox/Mg Hydrox/Simethicone (Aluminum/Magnesium Susp 30 Ml Udc) 30 ml PO Q4H PRN PRN Reason: GI Upset Stop: 01/28/24 23:58 Bismuth Subsalicylate (Bismuth Subsalicylate Liqd 236 Ml) 15 ml PO PRN PRN PRN Reason: Loose Stool Stop: 01/28/24 23:58 Hydroxyzine HCl (Hydroxyzine Hcl 25 Mg Tab) 25 mg PO Q4H PRN PRN Reason: Anxiety Stop: 01/28/24 23:58 Magnesium Hydroxide (Magnesium Hydroxide Susp 30 Ml Udc) 30 ml PO DAILY PRN PRN Reason: Constipation Stop: 01/28/24 23:58 Pantoprazole Sodium (Pantoprazole 40 Mg Tab) 40 mg PO DAILY CLAU Stop: 01/29/24 09:29 Last Admin: 01/01/24 09:11 Dose: 40 mg Risperidone (Risperidone 0.5 Mg Tablet) 0.5 mg PO BID PRN PRN Reason: psychosis/agitation/paranoia Stop: 01/29/24 14:30 Risperidone (Risperidone 1 Mg Tablet) 1 mg PO HS CLAU Stop: 01/30/24 21:59 Last Admin: 12/31/23 21:05 Dose: 1 mg Sertraline HCl (Sertraline Hcl 50 Mg Tablet) 50 mg PO QAM CLAU Stop: 01/30/24 08:59 Last Admin: 01/01/24 09:11 Dose: 50 mg Sodium Chloride (Sodium Chloride 0.65% Na Soln 45 Ml ([place])) 1 - 2 sprays NA PRN PRN PRN Reason: Nasal Dryness/Congestion Stop: 01/28/24 23:58 Vitamin D (Cholecalciferol 25 Mcg (1000 Units) Tab) 50 mcg PO DAILY CLAU Stop: 01/29/24 09:29 Last Admin: 01/01/24 09:11 Dose: 50 mcg Zolpidem Tartrate (Zolpidem Tartrate 5 Mg Tab) 10 mg PO HS PRN PRN Reason: Sleep Stop: 01/30/24 12:55 Last Admin: 12/31/23 22:55 Dose: 10 mg Mental Health & Subst Abuse Tx Therapist Name of Therapist: None Medical Technicians Name of Medical Technicians: None Post Discharge Appointments Primary Care Physician Name Of Family Doctor/PCP: Batsheva Looney (4) Insomnia Insomnia type: unspecified Qualified Code(s): G47.00 - Insomnia, unspecified
[2024-01-02 08:18] LABS: Chol HDL Ratio 3.1 (0-5)
--- NOTE | 2024-01-02 09:48 | Psychiatric Progress Note ---
Date of Service January 02, 2024 Impression / Recommendations Impression MANDY CAZARES is a 58-year-old woman who currently lives in [place] with her , has a history of insomnia, anxiety, depression, MS, and was admitted on 12/29/23 23:33 on a 302 involuntary commitment for mood changes with SI with plan and paranoia. Diagnostically consistent with unspecified psychosis with differential including major depressive disorder with psychotic features (especially given prominence of persecutory delusions) vs 2/2 Multiple Sclerosis vs primary psychotic disorder (family hx of schizophrenia but less likely given age with no known hx of psychosis/paranoia) vs BPAD current mixed episode given depression but also with poor sleep and increased paranoia. Now on a 303 commitment as of 01/01/2024. A: Less thought blocking today, able to tolerate discussion better, also seems to be some lessening of delusions/paranoia. Denies SI today, and some improvement in her mood, still with depression and anxiety. Will switch sertraline to HS given her sense this may be causing side effects. Fasting glucose and lipid panel all within normal limits, appropriate to continue with risperidone. MNPR due to recent significant paranoia, ongoing anxiety Overall, I spent a total of 25 minutes on this case including meeting with the patient, reviewing the chart, nursing report, multidisciplinary team meeting, orders, and documentation. (1) Unspecified psychosis not due to a substance or known physiological condition: (2) Paranoid: (3) Suicidal ideations: (4) Insomnia: (5) Multiple sclerosis: Plan 01/02/2024: -switch sertraline to 50mg HS starting tomorrow night -continue risperidone 1mg HS 01/01/2024: Continue current medications and tx plan. Fasting labwork in the AM. 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 inpatient mental health unit) on q15 min checks (behavioral with suicide precautions) for safety. The patient will participate in group, recreational, and milieu therapies and will be offered additional individual and family sessions as clinically appropriate. 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 SI, feels safe in the hospital, feels able to ask for support if needed ) Suicide Risk Level Comments: Risk Factors Assessment Male: No : Yes Do You Have Access To A Gun?: No Health Problems: Yes (MS) Mental Health Diagnoses: Yes Substance Use Disorders: No Previous Attempt: No Family History of Suicide: No Previous Psychiatric Hospitalization: No Hopelessness: Yes Protective Factors Assessment : Yes Employed: No (on disability) Stable Relationships: Yes Supportive Family: Yes Interval History Identifying Information MANDY CAZARES is a 58-year-old woman who currently lives in [place] with her , has a history of insomnia, anxiety, depression, MS, and was admitted on 12/29/23 23:33 on a 302 involuntary commitment for mood changes with SI with plan and paranoia. Chief Complaint "I'm feeling a little more positive today". Review of Systems Sleep Information Total Hours of Sleep: 5 Sleep Comments: Meal Information Percent Meal Consumed - Breakfast: 65 Percent Meal Consumed - Lunch: 25 Percent Meal Consumed - Dinner: 20 Subjective Subjective Patient was seen & assessed and interval progress reviewed with treatment team nursing and social work. Attended both evening groups, reported mood as "anxious". Reported feeling overwhelmed and that she worries she may never feel better but less thought blocking. Took risperidone last night, did not request prn Ambien. This morning showered and ate all of her breakfast. Reports yesterday was a "struggle" but feels a little more positive today. Denies side effects from risperidone. She does wonder if the sertraline is causing brain fog as after she takes the morning dose she feels "spacey". Reviewed option to switch to HS dosing which she'd like to do. Notes that she's working on recognizing things that are out of her control and not getting stuck on anxious thoughts noting "I'll just get in my head and get stuck". Reviewed labwork. Physical Exam Psychiatric Orientation: alert and oriented x 3 Apperance: appropriately dressed and appropriately groomed Eye Contact: good eye contact Motor Behavior: no abnormal motor movements Speech: normal rate/rhythm/volume of speech Affect: + constricted affect Mood: + depressed mood and + anxious mood Thought Process: + circumstantial thought process Thought Content: + paranoid, reality based without delusions and + persecution Suicidal Thoughts: denies suicidal thoughts, denies suicidal plan (none for hospital) and denies suicidal intent Homicidal Thoughts: denies homicidal thoughts Hallucinations: no auditory hallucinations and no visual hallucinations Cognition: recent memory grossly intact, remote memory grossly intact and language grossly intact; + attention not intact Estimated Intelligence: consistent with education level Insight: + limited insight Judgment: + fair judgement Vital Signs (Past 24 Hours) Last Vital Signs Temp 36.4 C L 01/02/24 06:39 Pulse 88 01/02/24 06:40 Resp 16 01/02/24 06:39 BP 117/79 01/02/24 06:40 Pulse Ox 97 12/31/23 06:25 O2 Del Method Room Air 12/31/23 06:25 Results & Data ([facility]) Laboratory Results Laboratory Results - last 24 hr 01/02/24 07:00 Fasting Glucose 96 Triglycerides 68 Cholesterol 167 LDL Cholesterol, Calc 99 VLDL Cholesterol, Calc 14 HDL Cholesterol 54 Cholesterol/HDL Ratio 3.1 Current Inpatient Medications Current Inpatient Medications: Current Inpatient Medications Acetaminophen (Acetaminophen 325 Mg Tab) 650 mg PO Q4H PRN PRN Reason: Headache or Minor Fever Stop: 01/28/24 23:58 Al Hydrox/Mg Hydrox/Simethicone (Aluminum/Magnesium Susp 30 Ml Udc) 30 ml PO Q4H PRN PRN Reason: GI Upset Stop: 01/28/24 23:58 Bismuth Subsalicylate (Bismuth Subsalicylate Liqd 236 Ml) 15 ml PO PRN PRN PRN Reason: Loose Stool Stop: 01/28/24 23:58 Hydroxyzine HCl (Hydroxyzine Hcl 25 Mg Tab) 25 mg PO Q4H PRN PRN Reason: Anxiety Stop: 01/28/24 23:58 Magnesium Hydroxide (Magnesium Hydroxide Susp 30 Ml Udc) 30 ml PO DAILY PRN PRN Reason: Constipation Stop: 01/28/24 23:58 Pantoprazole Sodium (Pantoprazole 40 Mg Tab) 40 mg PO DAILY CLAU Stop: 01/29/24 09:29 Last Admin: 01/02/24 08:32 Dose: 40 mg Risperidone (Risperidone 0.5 Mg Tablet) 0.5 mg PO BID PRN PRN Reason: psychosis/agitation/paranoia Stop: 01/29/24 14:30 Risperidone (Risperidone 1 Mg Tablet) 1 mg PO HS CLAU Stop: 01/30/24 21:59 Last Admin: 01/01/24 20:57 Dose: 1 mg Sertraline HCl (Sertraline Hcl 50 Mg Tablet) 50 mg PO QAM CLAU Stop: 01/30/24 08:59 Last Admin: 01/02/24 08:32 Dose: 50 mg Sodium Chloride (Sodium Chloride 0.65% Na Soln 45 Ml ([place])) 1 - 2 sprays NA PRN PRN PRN Reason: Nasal Dryness/Congestion Stop: 01/28/24 23:58 Vitamin D (Cholecalciferol 25 Mcg (1000 Units) Tab) 50 mcg PO DAILY CLAU Stop: 01/29/24 09:29 Last Admin: 01/02/24 08:32 Dose: 50 mcg Zolpidem Tartrate (Zolpidem Tartrate 5 Mg Tab) 10 mg PO HS PRN PRN Reason: Sleep Stop: 01/30/24 12:55 Last Admin: 12/31/23 22:55 Dose: 10 mg Mental Health & Subst Abuse Tx Therapist Name of Therapist: None Editorial Specialist Name of Editorial Specialist: None Post Discharge Appointments Primary Care Physician Name Of Family Doctor/PCP: Batsheva Looney (4) Insomnia Insomnia type: unspecified Qualified Code(s): G47.00 - Insomnia, unspecified
[2024-01-02] MEDS: ACETAMINOPHEN 325 MG TAB PO PRN (15:23)
--- NOTE | 2024-01-03 09:30 | Psychiatric Progress Note ---
Date of Service January 03, 2024 Impression / Recommendations Impression MANDY CAZARES is a 58-year-old woman who currently lives in [place] with her , has a history of insomnia, anxiety, depression, MS, and was admitted on 12/29/23 23:33 on a 302 involuntary commitment for mood changes with SI with plan and paranoia. Diagnostically consistent with unspecified psychosis with differential including major depressive disorder with psychotic features (especially given prominence of persecutory delusions) vs 2/2 Multiple Sclerosis vs primary psychotic disorder (family hx of schizophrenia but less likely given age with no known hx of psychosis/paranoia) vs BPAD current mixed episode given depression but also with poor sleep and increased paranoia. Now on a 303 commitment as of 01/01/2024. A: Showing some signs of improvement, still with anxiety and depression but less overt paranoia/persecutory delusions. Seems to have developed orthostatic hypotension with risperidone, and while still at a low dose, will reduce dose slightly in hopes orthostasis improves while maintaining some of the benefits seen so far for reducing thought blocking and paranoia. MNPR due to recent significant paranoia, ongoing anxiety Overall, I spent a total of 25 minutes on this case including meeting with the patient, reviewing the chart, nursing report, multidisciplinary team meeting, orders, and documentation. (1) Unspecified psychosis not due to a substance or known physiological condition: (2) Paranoid: (3) Suicidal ideations: (4) Insomnia: (5) Multiple sclerosis: Plan 01/03/2024: -Reduce risperidone to 0.75mg HS 01/02/2024: -switch sertraline to 50mg HS starting tomorrow night -continue risperidone 1mg HS 01/01/2024: Continue current medications and tx plan. Fasting labwork in the AM. 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 The patient will participate in group, recreational, and milieu therapies and will be offered additional individual and family sessions as clinically appropriate. 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, now denying SI, feels safe in the hospital, feels able to ask for support if needed ) Suicide Risk Level Comments: Risk Factors Assessment Male: No : Yes Do You Have Access To A Gun?: No Health Problems: Yes (MS) Mental Health Diagnoses: Yes Substance Use Disorders: No Previous Attempt: No Family History of Suicide: No Previous Psychiatric Hospitalization: No Hopelessness: Yes Protective Factors Assessment : Yes Employed: No (on disability) Stable Relationships: Yes Supportive Family: Yes Interval History Identifying Information MANDY CAZARES is a 58-year-old woman who currently lives in [place] with her , has a history of insomnia, anxiety, depression, MS, and was admitted on 12/29/23 23:33 on a 302 involuntary commitment for mood changes with SI with plan and paranoia. Chief Complaint "I'm a little slow today". Review of Systems Sleep Information Total Hours of Sleep: 7.5 Meal Information Percent Meal Consumed - Breakfast: 100 Percent Meal Consumed - Lunch: 50 Percent Meal Consumed - Dinner: 70 Subjective Subjective Patient was seen & assessed and interval progress reviewed with treatment team nursing and social work. Attended groups. Had visits from her and [id number]. Talked with all of her brothers on the phone yesterday. More spontaneous in her interactions. Has been out of her room and engaging with peers. Eating well. Slept 7.5 hours last night. Showering. This morning feels " a little slow today". Discussed vital signs showing signs of orthostatic hypotension, she recalls feeling a bit lightheaded this morning while showering. Denies any symptoms related to tachycardia, agrees to alert RNs if she develops any palpitations, racing heart, chest pain, or SOB. Had a headache yesterday and slightly today, adding motrin as acetaminophen yesterday was not helpful. Had a good visit and phone calls with family yesterday. Physical Exam Psychiatric Orientation: alert and oriented x 3 Apperance: appropriately dressed and appropriately groomed Eye Contact: good eye contact Motor Behavior: no abnormal motor movements Speech: normal rate/rhythm/volume of speech Affect: + constricted affect Mood: + depressed mood and + anxious mood Thought Process: + circumstantial thought process Thought Content: + paranoid, reality based without delusions and + persecution Suicidal Thoughts: denies suicidal thoughts, denies suicidal plan and denies suicidal intent Homicidal Thoughts: denies homicidal thoughts Hallucinations: no auditory hallucinations and no visual hallucinations Cognition: recent memory grossly intact, remote memory grossly intact, attention grossly intact and language grossly intact Estimated Intelligence: consistent with education level Insight: + limited insight Judgment: + fair judgement Vital Signs (Past 24 Hours) Last Vital Signs Temp 36.5 C 01/03/24 06:48 Pulse 160 H 01/03/24 06:49 Resp 16 01/03/24 06:48 BP 100/56 L 01/03/24 06:49 Pulse Ox 97 12/31/23 06:25 O2 Del Method Room Air 12/31/23 06:25 Results & Data ([facility]) Current Inpatient Medications Current Inpatient Medications: Current Inpatient Medications Acetaminophen (Acetaminophen 325 Mg Tab) 650 mg PO Q4H PRN PRN Reason: Headache or Minor Fever Stop: 01/28/24 23:58 Last Admin: 01/02/24 15:23 Dose: 650 mg Al Hydrox/Mg Hydrox/Simethicone (Aluminum/Magnesium Susp 30 Ml Udc) 30 ml PO Q4H PRN PRN Reason: GI Upset Stop: 01/28/24 23:58 Bismuth Subsalicylate (Bismuth Subsalicylate Liqd 236 Ml) 15 ml PO PRN PRN PRN Reason: Loose Stool Stop: 01/28/24 23:58 Hydroxyzine HCl (Hydroxyzine Hcl 25 Mg Tab) 25 mg PO Q4H PRN PRN Reason: Anxiety Stop: 01/28/24 23:58 Magnesium Hydroxide (Magnesium Hydroxide Susp 30 Ml Udc) 30 ml PO DAILY PRN PRN Reason: Constipation Stop: 01/28/24 23:58 Pantoprazole Sodium (Pantoprazole 40 Mg Tab) 40 mg PO DAILY CLAU Stop: 01/29/24 09:29 Last Admin: 01/03/24 08:49 Dose: 40 mg Risperidone (Risperidone 0.5 Mg Tablet) 0.5 mg PO BID PRN PRN Reason: psychosis/agitation/paranoia Stop: 01/29/24 14:30 Risperidone (Risperidone 1 Mg Tablet) 1 mg PO HS CLAU Stop: 01/30/24 21:59 Last Admin: 01/02/24 21:12 Dose: 1 mg Sertraline HCl (Sertraline Hcl 50 Mg Tablet) 50 mg PO HS CLAU Stop: 02/02/24 21:59 Sodium Chloride (Sodium Chloride 0.65% Na Soln 45 Ml ([place])) 1 - 2 sprays NA PRN PRN PRN Reason: Nasal Dryness/Congestion Stop: 01/28/24 23:58 Vitamin D (Cholecalciferol 25 Mcg (1000 Units) Tab) 50 mcg PO DAILY CLAU Stop: 01/29/24 09:29 Last Admin: 01/03/24 08:49 Dose: 50 mcg Zolpidem Tartrate (Zolpidem Tartrate 5 Mg Tab) 10 mg PO HS PRN PRN Reason: Sleep Stop: 01/30/24 12:55 Last Admin: 12/31/23 22:55 Dose: 10 mg Mental Health & Subst Abuse Tx Therapist Name of Therapist: None Build Technician Name of Build Technician: None Post Discharge Appointments Primary Care Physician Name Of Family Doctor/PCP: Batsheva Looney (4) Insomnia Insomnia type: unspecified Qualified Code(s): G47.00 - Insomnia, unspecified
[2024-01-03] MEDS ORDERED: IBUPROFEN 600 MG TAB PO PRN (10:22)
[2024-01-03] MEDS: SERTRALINE HCL 50 MG TABLET PO SCH (21:06)
[2024-01-03] MEDS: risperiDONE 0.25 MG TAB PO SCH (21:07)
--- NOTE | 2024-01-04 09:07 | Psychiatric Progress Note ---
Date of Service January 04, 2024 Impression / Recommendations Impression MANDY CAZARES is a 58-year-old woman who currently lives in [place] with her , has a history of insomnia, anxiety, depression, MS, and was admitted on 12/29/23 23:33 on a 302 involuntary commitment for mood changes with SI with plan and paranoia. Diagnostically consistent with major depressive disorder with psychotic features. Now on a 303 commitment as of 01/01/2024. A: Ongoing depression, but better able to talk about some of her recent symptoms and past stressors in a way that she previously could not due to thought blocking, no evidence of paranoia today. Tolerating lower dose of risperidone b maria victoria with no orthostatic hypotension. She prefers having the sertraline at HS. MNPR due to recent significant paranoia, ongoing anxiety Overall, I spent a total of 55 minutes on this case including meeting with the patient, reviewing the chart, nursing report, multidisciplinary team meeting, orders, speaking with her on the phone and documentation. (1) Unspecified psychosis not due to a substance or known physiological condition: (2) Paranoid: (3) Suicidal ideations: (4) Insomnia: (5) Multiple sclerosis: Plan 01/04/2024: Continue current medications and tx plan. 01/03/2024: -Reduce risperidone to 0.75mg HS 01/02/2024: -switch sertraline to 50mg HS starting tomorrow night -continue risperidone 1mg HS 01/01/2024: Continue current medications and tx plan. Fasting labwork in the AM. 12/31/2023: -risperidone 1mg HS -restart [employer] ambien 10mg HS 12/30/2023: The patient was admitted to the [facility] ([facility] mental health unit) on q15 min checks (behavioral with suicide precautions) for safety. The patient will participate in group, recreational, and milieu therapies and will be offered additional individual and family sessions as clinically appropriate. -Star sertraline 50mg qd -Start risperidone 0.5mg BID and additional 0.5mg BID prn -Fasting glucose and lipid panel in 1-2 days when she can better tolerate this -Elopement precautions Inventory Assets Strengths: supportive relationships Needs: safety and stabilization, medication adjustment, additional coping skills, increased outpatient services Suicide Risk Level Suicide Risk Level: Moderate (q15 min suicide checks) (psychosis with depression and SI [employer], now denying SI, feels safe in the hospital, feels able to ask for support if needed ) Suicide Risk Level Comments: Risk Factors Assessment Male: No : Yes Do You Have Access To A Gun?: No Health Problems: Yes (MS) Mental Health Diagnoses: Yes Substance Use Disorders: No Previous Attempt: No Family History of Suicide: No Previous Psychiatric Hospitalization: No Hopelessness: Yes Protective Factors Assessment : Yes Employed: No (on disability) Stable Relationships: Yes Supportive Family: Yes Interval History Identifying Information MANDY CAZARES is a 58-year-old woman who currently lives in [place] with her , has a history of insomnia, anxiety, depression, MS, and was admitted on 12/29/23 23:33 on a 302 involuntary commitment for mood changes with SI with plan and paranoia. Chief Complaint "Well". Review of Systems Sleep Information Total Hours of Sleep: 7.5 Meal Information Percent Meal Consumed - Breakfast: 70 Percent Meal Consumed - Lunch: 100 Percent Meal Consumed - Dinner: 100 Subjective Subjective Patient was seen & assessed and interval progress reviewed with treatment team nursing and social work. Attended groups. Still confused at times but overall organized. Last evening rated her mood as "hopeful". Today reports she continues to feel a bit like her thoughts slowed down but overall feeling like her mood is improving and that she can "focus better and engage more". Reflected on depression symptoms and she thinks she had some depression 2 years ago after her father and her job position was eliminated that then worsened over the last year after her MS diagnosis. Also spoke with her who reported she was having increased isolation on recent trip and described feeling like a burden to him and others prior to then making statement of SI. He feels she seemed a little more like herself this weekend when he visited her. Physical Exam Psychiatric Orientation: alert and oriented x 3 Apperance: appropriately dressed and appropriately groomed Eye Contact: good eye contact Motor Behavior: no abnormal motor movements Speech: normal rate/rhythm/volume of speech Affect: + constricted affect Mood: + depressed mood and + anxious mood Thought Process: + circumstantial thought process Thought Content: reality based without delusions Suicidal Thoughts: denies suicidal thoughts, denies suicidal plan and denies suicidal intent Homicidal Thoughts: denies homicidal thoughts Hallucinations: no auditory hallucinations and no visual hallucinations Cognition: recent memory grossly intact, remote memory grossly intact, attention grossly intact and language grossly intact Estimated Intelligence: consistent with education level Insight: + limited insight Judgment: + fair judgement Vital Signs (Past 24 Hours) Last Vital Signs Temp 36.8 C 01/04/24 06:43 Pulse 93 H 01/04/24 06:43 Resp 16 01/04/24 06:43 BP 126/84 01/04/24 06:43 Pulse Ox 97 12/31/23 06:25 O2 Del Method Room Air 12/31/23 06:25 Results & Data ([facility]) Current Inpatient Medications Current Inpatient Medications: Current Inpatient Medications Acetaminophen (Acetaminophen 325 Mg Tab) 650 mg PO Q4H PRN PRN Reason: Headache or Minor Fever Stop: 01/28/24 23:58 Last Admin: 01/02/24 15:23 Dose: 650 mg Al Hydrox/Mg Hydrox/Simethicone (Aluminum/Magnesium Susp 30 Ml Udc) 30 ml PO Q4H PRN PRN Reason: GI Upset Stop: 01/28/24 23:58 Bismuth Subsalicylate (Bismuth Subsalicylate Liqd 236 Ml) 15 ml PO PRN PRN PRN Reason: Loose Stool Stop: 01/28/24 23:58 Hydroxyzine HCl (Hydroxyzine Hcl 25 Mg Tab) 25 mg PO Q4H PRN PRN Reason: Anxiety Stop: 01/28/24 23:58 Ibuprofen (Ibuprofen 600 Mg Tab) 600 mg PO Q8H PRN PRN Reason: Headache Stop: 02/02/24 10:29 Magnesium Hydroxide (Magnesium Hydroxide Susp 30 Ml Udc) 30 ml PO DAILY PRN PRN Reason: Constipation Stop: 01/28/24 23:58 Pantoprazole Sodium (Pantoprazole 40 Mg Tab) 40 mg PO DAILY CLAU Stop: 01/29/24 09:29 Last Admin: 01/04/24 08:35 Dose: 40 mg Risperidone (Risperidone 0.5 Mg Tablet) 0.5 mg PO BID PRN PRN Reason: psychosis/agitation/paranoia Stop: 01/29/24 14:30 Risperidone (Risperidone 0.25 Mg Tab) 0.75 mg PO HS CLAU Stop: 02/02/24 21:59 Last Admin: 01/03/24 21:07 Dose: 0.75 mg Sertraline HCl (Sertraline Hcl 50 Mg Tablet) 50 mg PO HS CLAU Stop: 02/02/24 21:59 Last Admin: 01/03/24 21:06 Dose: 50 mg Sodium Chloride (Sodium Chloride 0.65% Na Soln 45 Ml ([place])) 1 - 2 sprays NA PRN PRN PRN Reason: Nasal Dryness/Congestion Stop: 01/28/24 23:58 Vitamin D (Cholecalciferol 25 Mcg (1000 Units) Tab) 50 mcg PO DAILY CLAU Stop: 01/29/24 09:29 Last Admin: 01/04/24 08:35 Dose: 50 mcg Zolpidem Tartrate (Zolpidem Tartrate 5 Mg Tab) 10 mg PO HS PRN PRN Reason: Sleep Stop: 01/30/24 12:55 Last Admin: 12/31/23 22:55 Dose: 10 mg Mental Health & Subst Abuse Tx Therapist Name of Therapist: None Nozzle Tender Name of Nozzle Tender: None Post Discharge Appointments Primary Care Physician Name Of Family Doctor/PCP: Batsheva Looney (4) Insomnia Insomnia type: unspecified Qualified Code(s): G47.00 - Insomnia, unspecified
--- NOTE | 2024-01-05 09:00 | Psychiatric Progress Note ---
Date of Service January 05, 2024 Impression / Recommendations Impression MANDY CAZARES is a 58-year-old woman who currently lives in [place] with her , has a history of insomnia, anxiety, depression, MS, and was admitted on 12/29/23 23:33 on a 302 involuntary commitment for mood changes with SI with plan and paranoia. Diagnostically consistent with major depressive disorder with psychotic features. Now on a 303 commitment as of 01/01/2024. A: Mood improving, still with some slight paranoia when specifically asked but not spontaneously coming up in conversation. Thought process is more organized and without signs of blocking. Tolerating medications. MNPR due to recent significant paranoia, ongoing anxiety Overall, I spent a total of 25 minutes on this case including meeting with the patient, reviewing the chart, nursing report, multidisciplinary team meeting, orders, and documentation. (1) Unspecified psychosis not due to a substance or known physiological condition: (2) Paranoid: (3) Suicidal ideations: (4) Insomnia: (5) Multiple sclerosis: Plan 01/05/2024: Continue current medications and tx plan. 01/04/2024: Continue current medications and tx plan. 01/03/2024: -Reduce risperidone to 0.75mg HS 01/02/2024: -switch sertraline to 50mg HS starting tomorrow night -continue risperidone 1mg HS 01/01/2024: Continue current medications and tx plan. Fasting labwork in the AM. 12/31/2023: -risperidone 1mg HS -restart [employer] ambien 10mg HS 12/30/2023: The patient was admitted to the [facility] ([facility] mental health unit) on q15 min checks (behavioral with suicide precautions) for safety. The patient will participate in group, recreational, and milieu therapies and will be offered additional individual and family sessions as clinically appropriate. -Star sertraline 50mg qd -Start risperidone 0.5mg BID and additional 0.5mg BID prn -Fasting glucose and lipid panel in 1-2 days when she can better tolerate this -Elopement precautions Inventory Assets Strengths: supportive relationships Needs: safety and stabilization, medication adjustment, additional coping skills, increased outpatient services Suicide Risk Level Suicide Risk Level: Moderate (q15 min suicide checks) (psychosis with depression and SI [employer], now denying SI, mood improving, feels safe in the hospital, feels able to ask for support if needed ) Suicide Risk Level Comments: Risk Factors Assessment Male: No : Yes Do You Have Access To A Gun?: No Health Problems: Yes (MS) Mental Health Diagnoses: Yes Substance Use Disorders: No Previous Attempt: No Family History of Suicide: No Previous Psychiatric Hospitalization: No Hopelessness: Yes Protective Factors Assessment : Yes Employed: No (on disability) Stable Relationships: Yes Supportive Family: Yes Interval History Identifying Information MANDY CAZARES is a 58-year-old woman who currently lives in [place] with her , has a history of insomnia, anxiety, depression, MS, and was admitted on 12/29/23 23:33 on a 302 involuntary commitment for mood changes with SI with plan and paranoia. Chief Complaint "Doing alright". Review of Systems Sleep Information Total Hours of Sleep: 7 Meal Information Percent Meal Consumed - Breakfast: 70 Percent Meal Consumed - Lunch: 60 Percent Meal Consumed - Dinner: 60 Subjective Subjective Patient was seen & assessed and interval progress reviewed with treatment team nursing and social work. Attending groups, supportive of her peers. Made comment to staff that she still feels a little unsure if something else might be going on. Took some time to sign ROIs for aftercare but did not ruminate about this afterwards. Rated her mood as a 4 last evening. Slept ok last night, not quite as well as the night before. Today reports mood as "alright". When she wakes up in the morning feels "out of sorts" for about an hour but then this sense resolves, she attributes this to a possible medication side effect. Worked with SW to complete paperwork for therapy intake. Focus is "doing ok". Denies SI. Still a sense that "comes and goes" that more may be going on or that things aren't just a coincidence but seems to be lessening a bit. Physical Exam Psychiatric Orientation: alert and oriented x 3 Apperance: appropriately dressed and appropriately groomed Eye Contact: good eye contact Motor Behavior: no abnormal motor movements Speech: normal rate/rhythm/volume of speech Affect: + constricted affect Mood: + depressed mood and + anxious mood Thought Process: goal directed thought process Thought Content: reality based without delusions Suicidal Thoughts: denies suicidal thoughts, denies suicidal plan and denies suicidal intent Homicidal Thoughts: denies homicidal thoughts Hallucinations: no auditory hallucinations and no visual hallucinations Cognition: recent memory grossly intact, remote memory grossly intact, attention grossly intact and language grossly intact Estimated Intelligence: consistent with education level Insight: + fair insight Judgment: + fair judgement Vital Signs (Past 24 Hours) Last Vital Signs Temp 36.7 C 01/05/24 06:37 Pulse 79 01/05/24 06:37 Resp 16 01/05/24 06:37 BP 113/83 01/05/24 06:37 Pulse Ox 97 12/31/23 06:25 O2 Del Method Room Air 12/31/23 06:25 Results & Data ([facility]) Current Inpatient Medications Current Inpatient Medications: Current Inpatient Medications Acetaminophen (Acetaminophen 325 Mg Tab) 650 mg PO Q4H PRN PRN Reason: Headache or Minor Fever Stop: 01/28/24 23:58 Last Admin: 01/02/24 15:23 Dose: 650 mg Al Hydrox/Mg Hydrox/Simethicone (Aluminum/Magnesium Susp 30 Ml Udc) 30 ml PO Q4H PRN PRN Reason: GI Upset Stop: 01/28/24 23:58 Bismuth Subsalicylate (Bismuth Subsalicylate Liqd 236 Ml) 15 ml PO PRN PRN PRN Reason: Loose Stool Stop: 01/28/24 23:58 Hydroxyzine HCl (Hydroxyzine Hcl 25 Mg Tab) 25 mg PO Q4H PRN PRN Reason: Anxiety Stop: 01/28/24 23:58 Ibuprofen (Ibuprofen 600 Mg Tab) 600 mg PO Q8H PRN PRN Reason: Headache Stop: 02/02/24 10:29 Magnesium Hydroxide (Magnesium Hydroxide Susp 30 Ml Udc) 30 ml PO DAILY PRN PRN Reason: Constipation Stop: 01/28/24 23:58 Pantoprazole Sodium (Pantoprazole 40 Mg Tab) 40 mg PO DAILY CLAU Stop: 01/29/24 09:29 Last Admin: 01/04/24 08:35 Dose: 40 mg Risperidone (Risperidone 0.5 Mg Tablet) 0.5 mg PO BID PRN PRN Reason: psychosis/agitation/paranoia Stop: 01/29/24 14:30 Risperidone (Risperidone 0.25 Mg Tab) 0.75 mg PO HS CLAU Stop: 02/02/24 21:59 Last Admin: 01/04/24 20:51 Dose: 0.75 mg Sertraline HCl (Sertraline Hcl 50 Mg Tablet) 50 mg PO HS CLAU Stop: 02/02/24 21:59 Last Admin: 01/04/24 20:52 Dose: 50 mg Sodium Chloride (Sodium Chloride 0.65% Na Soln 45 Ml ([place])) 1 - 2 sprays NA PRN PRN PRN Reason: Nasal Dryness/Congestion Stop: 01/28/24 23:58 Vitamin D (Cholecalciferol 25 Mcg (1000 Units) Tab) 50 mcg PO DAILY CLAU Stop: 01/29/24 09:29 Last Admin: 01/04/24 08:35 Dose: 50 mcg Zolpidem Tartrate (Zolpidem Tartrate 5 Mg Tab) 10 mg PO HS PRN PRN Reason: Sleep Stop: 01/30/24 12:55 Last Admin: 12/31/23 22:55 Dose: 10 mg Mental Health & Subst Abuse Tx Psychiatrist Name of Psychiatrist: Dr. Beatriz Brar Psychiatrist's Date Of Appointment With Psychiatric Provider: 02/16/24Thursday Time of Appointment with Psychiatrist: 11:00AM Psychiatric Appointment Comment: Virtual appt. They will send the link to your email. Therapist Name of Therapist: [facility] - Farhana Yoder Therapist's Date of Therapist Appointment: 01/11/24Thursday Time of Therapist Appointment: 4:00pm Therapy Appointment Comment: they will e-mail you w instructions for portal access ("therapy notes") Grounds And Nursery Specialist Name of Grounds And Nursery Specialist: None Post Discharge Appointments Primary Care Physician Name Of Family Doctor/PCP: ROMARIO Cheek Primary [facility] Date of Future Appointment with PCP: 02/01/24 Time of Appointment with PCP: 3:25pm Neurologist Name of Neurologist: Dr. Sotelo Date of Appointment with Neurologist: 04/04/24 Time of Appointment with Neurologist: 4:00PM Neurology Appointment Comment: established pt. appt (4) Insomnia Insomnia type: unspecified Qualified Code(s): G47.00 - Insomnia, unspecified
--- NOTE | 2024-01-06 09:04 | Psychiatric Progress Note ---
Date of Service January 06, 2024 Impression / Recommendations Impression MANDY CAZARES is a 58-year-old woman who currently lives in [place] with her , has a history of insomnia, anxiety, depression, MS, and was admitted on 12/29/23 23:33 on a 302 involuntary commitment for mood changes with SI with plan and paranoia. Diagnostically consistent with major depressive disorder with psychotic features. Now on a 303 commitment as of 01/01/2024. A: Mood continues to improve, no signs of thought blocking today, bright affect, denies SI and tolerated completing a significant amount of paperwork for therapy and psychiatry outpatient referrals. Still needs to have a support meeting. Tolerating medications well. MNPR due to recent significant paranoia, ongoing anxiety Overall, I spent a total of 25 minutes on this case including meeting with the patient, reviewing the chart, nursing report, multidisciplinary team meeting, orders, and documentation. (1) Unspecified psychosis not due to a substance or known physiological condition: (2) Paranoid: (3) Suicidal ideations: (4) Multiple sclerosis: Plan 01/06/2024: Continue current medications and tx plan. 01/05/2024: Continue current medications and tx plan. 01/04/2024: Continue current medications and tx plan. 01/03/2024: -Reduce risperidone to 0.75mg HS 01/02/2024: -switch sertraline to 50mg HS starting tomorrow night -continue risperidone 1mg HS 01/01/2024: Continue current medications and tx plan. Fasting labwork in the AM. 12/31/2023: -risperidone 1mg HS -restart [employer] ambien 10mg HS 12/30/2023: The patient was admitted to the [facility] ([facility] mental health unit) on q15 min checks (behavioral with suicide precautions) for safety. The patient will participate in group, recreational, and milieu therapies and will be offered additional individual and family sessions as clinically appropriate. -Star sertraline 50mg qd -Start risperidone 0.5mg BID and additional 0.5mg BID prn -Fasting glucose and lipid panel in 1-2 days when she can better tolerate this -Elopement precautions Inventory Assets Strengths: supportive relationships Needs: safety and stabilization, medication adjustment, additional coping skills, increased outpatient services Suicide Risk Level Suicide Risk Level: Moderate (q15 min suicide checks) (psychosis with depression and SI [employer], now denying SI, mood improving, feels safe in the hospital, feels able to ask for support if needed ) Suicide Risk Level Comments: Risk Factors Assessment Male: No : Yes Do You Have Access To A Gun?: No Health Problems: Yes (MS) Mental Health Diagnoses: Yes Substance Use Disorders: No Previous Attempt: No Family History of Suicide: No Previous Psychiatric Hospitalization: No Hopelessness: Yes Protective Factors Assessment : Yes Employed: No (on disability) Stable Relationships: Yes Supportive Family: Yes Interval History Identifying Information MANDY CAZARES is a 58-year-old woman who currently lives in [place] with her , has a history of insomnia, anxiety, depression, MS, and was admitted on 12/29/23 23:33 on a 302 involuntary commitment for mood changes with SI with plan and paranoia. Chief Complaint "I'm alright". Review of Systems Sleep Information Total Hours of Sleep: 6.5 Meal Information Percent Meal Consumed - Breakfast: 90 Percent Meal Consumed - Lunch: 60 Percent Meal Consumed - Dinner: 70 Subjective Subjective Patient was seen & assessed and interval progress reviewed with treatment team nursing and social work. Got a little overwhelmed filling out paperwork yesterday for therapy. Had a good visit with her . Less guarded. Today reports her mood is "alright" and that she's feeling improvements in her mood. Feels that overall "I'm feeling good". She denies any medication side effects. Today was able to complete all of the paperwork for her therapy and psychiatry intakes. Still at times feels a sense of getting "overwhelmed" but know feels that "I know where to turn" and that she has new coping skills to use to help herself navigate these emotions. Denies SI. Physical Exam Psychiatric Orientation: alert and oriented x 3 Apperance: appropriately dressed and appropriately groomed Eye Contact: good eye contact Motor Behavior: no abnormal motor movements Speech: normal rate/rhythm/volume of speech Affect: euthymic affect Mood: + anxious mood; no depressed mood Thought Process: goal directed thought process Thought Content: reality based without delusions Suicidal Thoughts: denies suicidal thoughts, denies suicidal plan and denies suicidal intent Homicidal Thoughts: denies homicidal thoughts Hallucinations: no auditory hallucinations and no visual hallucinations Cognition: recent memory grossly intact, remote memory grossly intact, attention grossly intact and language grossly intact Estimated Intelligence: consistent with education level Insight: + fair insight Judgment: + fair judgement Vital Signs (Past 24 Hours) Last Vital Signs Temp 36.8 C 01/06/24 06:45 Pulse 88 01/06/24 06:46 Resp 16 01/06/24 06:45 BP 118/77 01/06/24 06:46 Pulse Ox 97 12/31/23 06:25 O2 Del Method Room Air 12/31/23 06:25 Results & Data ([facility]) Current Inpatient Medications Current Inpatient Medications: Current Inpatient Medications Acetaminophen (Acetaminophen 325 Mg Tab) 650 mg PO Q4H PRN PRN Reason: Headache or Minor Fever Stop: 01/28/24 23:58 Last Admin: 01/02/24 15:23 Dose: 650 mg Al Hydrox/Mg Hydrox/Simethicone (Aluminum/Magnesium Susp 30 Ml Udc) 30 ml PO Q4H PRN PRN Reason: GI Upset Stop: 01/28/24 23:58 Bismuth Subsalicylate (Bismuth Subsalicylate Liqd 236 Ml) 15 ml PO PRN PRN PRN Reason: Loose Stool Stop: 01/28/24 23:58 Hydroxyzine HCl (Hydroxyzine Hcl 25 Mg Tab) 25 mg PO Q4H PRN PRN Reason: Anxiety Stop: 01/28/24 23:58 Ibuprofen (Ibuprofen 600 Mg Tab) 600 mg PO Q8H PRN PRN Reason: Headache Stop: 02/02/24 10:29 Magnesium Hydroxide (Magnesium Hydroxide Susp 30 Ml Udc) 30 ml PO DAILY PRN PRN Reason: Constipation Stop: 01/28/24 23:58 Pantoprazole Sodium (Pantoprazole 40 Mg Tab) 40 mg PO DAILY CLAU Stop: 01/29/24 09:29 Last Admin: 01/05/24 09:04 Dose: 40 mg Risperidone (Risperidone 0.5 Mg Tablet) 0.5 mg PO BID PRN PRN Reason: psychosis/agitation/paranoia Stop: 01/29/24 14:30 Risperidone (Risperidone 0.25 Mg Tab) 0.75 mg PO HS CLAU Stop: 02/02/24 21:59 Last Admin: 01/05/24 21:47 Dose: 0.75 mg Sertraline HCl (Sertraline Hcl 50 Mg Tablet) 50 mg PO HS CLAU Stop: 02/02/24 21:59 Last Admin: 01/05/24 21:48 Dose: 50 mg Sodium Chloride (Sodium Chloride 0.65% Na Soln 45 Ml ([employer])) 1 - 2 sprays NA PRN PRN PRN Reason: Nasal Dryness/Congestion Stop: 01/28/24 23:58 Vitamin D (Cholecalciferol 25 Mcg (1000 Units) Tab) 50 mcg PO DAILY CLAU Stop: 01/29/24 09:29 Last Admin: 01/05/24 09:04 Dose: 50 mcg Zolpidem Tartrate (Zolpidem Tartrate 5 Mg Tab) 10 mg PO HS PRN PRN Reason: Sleep Stop: 01/30/24 12:55 Last Admin: 12/31/23 22:55 Dose: 10 mg Mental Health & Subst Abuse Tx Psychiatrist Name of Psychiatrist: Dr. Henderson [facility] Psychiatrist's Date Of Appointment With Psychiatric Provider: 02/16/24Thursday Time of Appointment with Psychiatrist: 11:00AM Psychiatric Appointment Comment: Virtual appt. They will send the link to your email. Therapist Name of Therapist: [facility] - Farhana [place] Therapist's Date of Therapist Appointment: 01/11/24Thursday Time of Therapist Appointment: 4:00pm Therapy Appointment Comment: they will e-mail you w instructions for portal acce ss ("therapy notes") Feeder Driver Name of Feeder Driver: None Post Discharge Appointments Primary Care Physician Name Of Family Doctor/PCP: ROMARIO Cheek Primary [facility] Date of Future Appointment with PCP: 02/01/24 Time of Appointment with PCP: 3:25pm Neurologist Name of Neurologist: Dr. Sotelo Date of Appointment with Neurologist: 04/04/24 Time of Appointment with Neurologist: 4:00PM Neurology Appointment Comment: established pt. appt
[2024-01-07 06:48] VITALS: TEMP 97.9
--- NOTE | 2024-01-07 08:58 | Discharge Summary ---
Date of Service January 07, 2024 History of Present Illness Antonietta presents after her and primary care provider encouraged her to come to the hospital for worsening depression with SI with possible plan of hanging herself as well as increased paranoia and poor sleep. Additional recent history per ED CM note from 12/29/2023: "Pts report that approximately 2 weeks ago they traveled to [facility]. He states that the day they left patient started acting very paranoid and suspicious. She refused to go through security at the airport. She felt like she was being set up. states that they travel frequently so she is very familiar with the airport process. He reports that when they got to [facility] patient refused to leave their room. She would not go to dinner, wouldnt go on any excursions, and did not sleep at all. He states that getting her home was an even bigger c hallenge. Pt refused to put her purse and belongings through the security scanner and created a huge scene and 3 security workers from [employer] became involved. When they returned home pts called her neurologist. Pt was dx with MS in Mar [address] Sotelo. An appointment could not be obtained right away so pt came to the ER. She then saw Dr Sotelo the next day. Pt was cleared at the ER and with Dr Sotelo who did not think it was related to her MS or treatment. He attributed the behaviors to lack of sleep. (This was approx. one week ago). Pt has continued to become more paranoid and still is not sleeping. Yesterday she told her husbands security control room officer that she wanted to hang herself. She has also been making statements like I dont want to be here anymore Everyone would be happier and could move on with their lives if I wasnt here. Pt admits to saying these things and when asked further questions she becomes upset and says this is so crazy I was raised that you dont do that. Pt appears to be having difficulty processing questions asked. Pt admits that she thinks this (being in the ER) is a set up. She states there is more going on here than what I am thinking. She has no mental health history prior to this episode. Pt has had significant stressors in the past year. Her father , she was diagnosed with MS and her job was eliminated. 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 Pt's is very much in favor of patient being admitted for psychiatric treatment. Pt is hesitant and states "I don't think it is necessary or a good idea"." She struggles to engage in the interview with me today due to significant thought blocking. She describes struggling to complete some basic paperwork, an assessment of her interests and coping skills, which typically would be easy for her to do. She recognizes this is a change from her baseline but isn't as sure about depression or paranoia being something she's been dealing with. Rather describes her concerns as "I'm just not happy with who I am", when asked to elaborate she struggles to provide any further context to this statement. Makes other vague statements such as "I don't have a full understanding of what all is happening". Asked about her recent statements of SI, she verifies this though today states she doesn't think she would ever act on these thoughts, but cannot explain why not nor what seems to be driving the suicidal thoughts. She does identify struggling more with sleep recently, and agrees it's possible she may be depressed. She doesn't identify having a poor appetite but reportedly hasn't been eating much. In discussing her recent struggles at the airport and labeling my concern that this represents paranoia or psychosis she isn't sure about this. She ack nowledges why others are concerned about paranoid but notes "there's more going on here" and expands as "some bigger thing at play". She states "I feel like I'm in trouble" but cannot describe this further. She is currently prescribed psychiatric medications of Ambien 10mg and trazodone 50mg HS prn for sleep. Psychiatric ROS unable to be assessed fully given thought blocking. Physical Exam Vital Signs (Past 24 Hours) Last Vital Signs Temp 36.6 C 01/07/24 06:47 Pulse 81 01/07/24 06:48 Resp 16 01/07/24 06:47 BP 108/72 01/07/24 06:48 Pulse Ox 97 12/31/23 06:25 O2 Del Method Room Air 12/31/23 06:25 Principal Diagnosis Major Depressive Disorder with psychotic features Psychiatric Data See daily stay summary. In short, patient was engaged with the social/therapeutic milieu of the unit, safety was maintained and the patient was cooperative with care. Medication changes included initiation of sertraline and risperidone for MDD with psychotic features and they tolerated this well. Baseline labs of fasting glucose, fasting lipid profile, and weight were preformed (see labwork results below). Recommend repeat weight in one month. Recommend repeat fasting glucose, HbA1c and fasting lipid profile every 12 weeks and then annually. If symptoms arise recommend checking BP, EKG, prolactin level as clinically indicated or relevant. She may be able to taper risperidone in 1-2 months as depression symptoms resolve and as sertraline takes full effect. A support session was held and safety plan was completed prior to discharge. They participated in safety planning and in discussions about ways to seek support and recognizing warning signs and utilizing coping skills. Reviewed ways to have their safety plan and contacts easily available should thoughts of SI re -emerge in the future. Reviewed importance of seeking emergency care should SI intensify, worsen or should they feel unsafe in the future which they agree to do. On the day of discharge they stated their mood was "good" and remained future-oriented including seeing her puppy, being outside and engaging in aftercare appointments for psychiatry and therapy. Day of Discharge Assessment Today the patient voices readiness for discharge. They note improvement in mood and anxiety. They deny thoughts of harm to self or others. Thoughts are organized and they are clinically improved from admission. There is no evidence of psychosis. They improved in the hospital with support and medication adjustments. They agree to take medications as prescribed and keep follow-up appointments. At the time of the discharge they are deemed to be stable and appropriate for outpatient level of care. They are not deemed to be at imminent risk of harm to self or others. They are aware of emergency and crisis services. Knows to call 911 or go to nearest emergency care center if in a crisis which cannot be handled as an outpatient. Suicide risk assessment: Acute risk is low given improvement in mood and denial of SI, lack of access to lethal means, improvement in sleep, hopefulness and improvement in psychosis. Chronic risk is moderate given some non-modifiable risk factors: chronic illness but also with protective factors including: good social support, sense of responsibility to family and social supports, outpatient care in place, positive coping skills, positive problem solving, self-observation. Counseled on ways to reduce acute and chronic risk including engaging with outpatient providers, using safety plan if needed, utilizing supports, taking medication, and using coping skills. Modifiable risk factors of SI, paranoia and depression were addressed during hospitalization through development of new coping skills, support meeting, safety planning, and medication adjustments. Discharge physical exam: See admission H&P, MSE per above and day of discharge summary. Overall, I spent a total of 40 minutes on this case including meeting with the patient, reviewing the chart, nursing report, multidisciplinary team meeting, discharge orders, anticipatory planning, safety planning, risk assessment and documentation. Transition of Care Transition Of Care Record: was reviewed with the patient Advance Directives Advance Directives Information Provided: No Advance Directives: No Mental Health Advance Directive: No Advance Directives on File: No Living Will: No Power of Patient Account Specialist: No Advance Directives Reason:: Declines as Mental Health Visit. Suicide Risk Level Suicide Risk Level: Low (q15 min observation checks) Suicide Risk Level Comments: see assessment above Risk Factors Assessment Male: No : Yes Do You Have Access To A Gun?: No Health Problems: Yes (MS) Mental Health Diagnoses: Yes Substance Use Disorders: No Previous Attempt: No Family History of Suicide: No Previous Psychiatric Hospitalization: No Hopelessness: No Protective Factors Assessment : Yes Employed: No (on disability) Stable Relationships: Yes Supportive Family: Yes Discharge Data Lab Results 12/29/23 12/29/23 12/29/23 15:41 15:56 16:08 WBC 8.12 RBC 5.54 H Hgb 15.9 Hct 49.0 H MCV 88.4 MCH 28.7 MCHC 32.4 RDW Std Deviation 40.6 RDW Coeff of Jeffrey 12.5 Plt Count 266 MPV 12.3 Immature Gran % (Auto) 0.4 Neut % (Auto) 79.8 Lymph % (Auto) 12.6 [place] % (Auto) 6.5 Eos % (Auto) 0.2 Baso % (Auto) 0.5 Neut # (Auto) 6.48 Lymph # (Auto) 1.02 L [place] # (Auto) 0.53 Eos # (Auto) 0.02 Baso # (Auto) 0.04 Immature Gran # (Auto) 0.03 Sodium 141 Potassium 3.8 Chloride 103 Carbon Dioxide 27 Anion Gap 11 BUN 22 Creatinine 0.68 Est Cr Clr Drug Dosing 63.1 Est GFR ( Amer) 111.8 Est GFR (Non-Af Amer) 96.4 BUN/Creatinine Ratio 32.4 H Glucose 79 Fasting Glucose Calcium 10.4 H Total Bilirubin 0.8 AST 17 ALT 17 Alkaline Phosphatase 43 Total Protein 7.7 Albumin 5.0 Globulin 2.7 Albumin/Globulin Ratio 1.9 Triglycerides Cholesterol LDL Cholesterol, Calc VLDL Cholesterol, Calc HDL Cholesterol Cholesterol/HDL Ratio TSH 1.952 Urine Color Yellow Urine Appearance Cloudy A Urine pH 5.5 Ur Specific [place] 1.033 H Urine Protein Trace H Urine Glucose (UA) Negative Urine Ketones 2+ H Urine Blood Negative Urine Nitrite Negative Urine Bilirubin Negative Urine Urobilinogen Negative Ur Leukocyte Esterase 1+ H Urine WBC (Auto) 0-5 Urine RBC (Auto) 0-2 U Hyaline Cast (Auto) 3-5 H U Epithel Cells (Auto) 3-5 H Urine Bacteria (Auto) None Seen Urine Mucus Present A POC Ur Test NEG Salicylates < 3.0 L Urine Opiates Screen Neg Ur Methadone, Qual Neg Urine Fentanyl Screen Neg Acetaminophen < 3 L Urine Barbiturates Neg Ur Phencyclidine (PCP) Neg U Amphetamin/Meth Scrn Neg MDMA (Ecstasy) Screen Neg U Benzodiazepines Scrn Neg Ur Cocaine Metabolite Neg U Marijuana (THC) Screen Neg Ethyl Alcohol mg/dL < 10.0 SARS-CoV-2, RNA, NAAT 12/29/23 01/02/24 16:10 07:00 WBC RBC Hgb Hct MCV MCH MCHC RDW Std Deviation RDW Coeff of Jeffrey Plt Count MPV Immature Gran % (Auto) Neut % (Auto) Lymph % (Auto) [place] % (Auto) Eos % (Auto) Baso % (Auto) Neut # (Auto) Lymph # (Auto) [place] # (Auto) Eos # (Auto) Baso # (Auto) Immature Gran # (Auto) Sodium Potassium Chloride Carbon Dioxide Anion Gap BUN Creatinine Est Cr Clr Drug Dosing Est GFR ( Amer) Est GFR (Non-Af Amer) BUN/Creatinine Ratio Glucose Fasting Glucose 96 Calcium Total Bilirubin AST ALT Alkaline Phosphatase Total Protein Albumin Globulin Albumin/Globulin Ratio Triglycerides 68 Cholesterol 167 LDL Cholesterol, Calc 99 VLDL Cholesterol, Calc 14 HDL Cholesterol 54 Cholesterol/HDL Ratio 3.1 TSH Urine Color Urine Appearance Urine pH Ur Specific [place] Urine Protein Urine Glucose (UA) Urine Ketones Urine Blood Urine Nitrite Urine Bilirubin Urine Urobilinogen Ur Leukocyte Esterase Urine WBC (Auto) Urine RBC (Auto) U Hyaline Cast (Auto) U Epithel Cells (Auto) Urine Bacteria (Auto) Urine Mucus POC Ur Test Salicylates Urine Opiates Screen Ur Methadone, Qual Urine Fentanyl Screen Acetaminophen Urine Barbiturates Ur Phencyclidine (PCP) U Amphetamin/Meth Scrn MDMA (Ecstasy) Screen U Benzodiazepines Scrn Ur Cocaine Metabolite U Marijuana (THC) Screen Ethyl Alcohol mg/dL SARS-CoV-2, RNA, NAAT NEGATIVE Hospital Course (1) Major depression with psychotic features: (2) Suicidal ideations: (3) Multiple sclerosis: (4) Paranoid: Plan 01/07/2024: Slept well, mood improved, feels safe and ready for discharge 01/06/2024: Continue current medications and tx plan. 01/05/2024: Continue current medications and tx plan. 01/04/2024: Continue current medications and tx plan. 01/03/2024: -Reduce risperidone to 0.75mg HS 01/02/2024: -switch sertraline to 50mg HS starting tomorrow night -continue risperidone 1mg HS 01/01/2024: Continue current medications and tx plan. Fasting labwork in the AM. 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 The patient will participate in group, recreational, and milieu therapies and will be offered additional individual and family sessions as clinically appropriate. -Star sertraline 50mg qd -Start risperidone 0.5mg BID and additional 0.5mg BID prn -Fasting glucose and lipid panel in 1-2 days when she can better tolerate this -Elopement precautions Mental Health & Subst Abuse Tx Psychiatrist Name of Psychiatrist: Dr. Beatriz Brar Psychiatrist's Date Of Appointment With Psychiatric Provider: 02/16/24Thursday Time of Appointment with Psychiatrist: 11:00AM Psychiatric Appointment Comment: Virtual appt. They will send the link to your email. Therapist Name of Therapist: [facility] - Farhana Yoder Therapist's Date of Therapist Appointment: 01/11/24Thursday Time of Therapist Appointment: 4:00pm Therapy Appointment Comment: they will e-mail you w instructions for portal access ("therapy notes") Supervisor Graphite Name of Supervisor Graphite: None Post Discharge Appointments Primary Care Physician Name Of Family Doctor/PCP: [facility] Date of Future Appointment with PCP: 02/01/24 Time of Appointment with PCP: 3:25pm Neurologist Name of Neurologist: Dr. Sotelo Date of Appointment with Neurologist: 04/04/24 Time of Appointment with Neurologist: 4:00PM Neurology Appointment Comment: established pt. appt Discharge Plan Discharge Items Patient Disposition: Home - Self-Care Reason For Visit: UNSPECIFIED PSYCHOSIS Discharge Diagnosis: Major Depressive Disorder with psychotic features Activity: Resume your previous activity Non-emergency contact: Primary Care Provider, Psychiatrist and Therapist Call non-emergency contact if: you have any medication questions and your symptoms worsen Follow-up/Referrals: Batsheva Looney [Primary Care Provider] - Diet: Regular Addtl Attending Provider Instructions: Optional mobile apps: -Suicide safety plan -Virtual Hope Box -Headspace $ -Youtube for restorative or gentle yoga SPECIAL CARE INSTRUCTIONS: 1. Follow through with your scheduled aftercare appointments. If unable to keep an appointment, please call to reschedule. 2. Take your medication only as prescribed. Medication should not be changed or stopped without the approval of your doctor. In the event of worsening symptoms or concerns about side effects, contact your doctor immediately. 3. Utilize new healthy coping skills, anger management skills, and stress management skills learned during your hospitalization. Journal feelings and process them with a support person. Identify stressors or situations that may result in relapse, deterioration or inappropriate behaviors and develop a plan to deal with those issues. 4. If your coping skills are ineffective and you are in crisis, contact your outpatient providers for direction. If unable to reach your providers, please call the [facility] CRISIS LINE AT , go to the [facility] walk-in center at [address], [address], [place], or go to the closest Emergency Room. 5. Avoid alcohol and un-prescribed drugs. 6. You have been provided with the Mental Health Advance Directives Pamphlet for your review. 7. Your condition is stable for discharge to outpatient level of care, but recovery is an ongoing process. Ifthoughts to harm yourself or others return, follow the safety plan developed during your stay. Planning for a safe return home includes securing weapons. Our treatment team recommends weaponsbe removed from the home until your outpatient provider reassesses your progress. In rare cases where the items themselvescannot be removed, guns and ammunitionshould be secured separatelyand keys stored by a reliable personoutside of the home. If you were admitted on an involuntary commitment, the police or other legal authorities may be involved in this process. AFTERCARE APPOINTMENTS: * Please call your insurance company prior to your scheduled appointment to confirm your aftercare providers are covered. Take your insurance information to your appointments. WHO TO CALL AND WHEN: Medical Emergencies: For questions or emergencies related to your hospital stay, please contact the Inpatient Behavioral Health Unit at [phone]. A utility tender carding is on-call 15/12 for the Behavioral Health Unit for emergencies At any time you feel your situation is an emergency, you may also call 911 immediately. National Crisis Hotline: 298 Pending Studies at Discharge: No Stand-Alone Forms: My [facility] Medications and DC Order Prescriptions: New risperidone 0.25 mg Tablet 0.75 mg PO HS 30 Days Qty: 90 0RF sertraline 50 mg Tablet 50 mg PO HS 30 Days Qty: 30 0RF Continued melatonin 10 mg tablet 10 mg PO HS PRN (Reason: Sleep) cholecalciferol (vitamin D3) 50 mcg (2,000 unit) capsule 50 mcg PO DAILY omeprazole 20 mg capsule,delayed release(DR/EC) 20 mg PO DAILY zolpidem 10 mg tablet 10 mg PO HS PRN (Reason: Sleep) Rx Instructions: states she is not currently taking this medication Ocrevus 30 mg/mL solution 0 mg IV UD Rx Instructions: Unable to verify this medication w/ patient at this date/time. Original Directions:300 mg IV Day1 and Day15,then 600mg IV every 6 months. 30 mins before each infusion, premedicate w/ methylprednisolone 100mg iv,Diphenhydramine 25mg iv,and Actaminophen 500mg PO. ; May give an additional 25mg diphenhydramine IV during infusion PRN. Discontinued trazodone 50 mg tablet 50 mg PO HS PRN (Reason: insomnia) Rx Instructions: patient states she never filled this prescription Discharge Orders: Discharge Order (Routine); Ordered 01/07/24 Ordered By: Charlene Jimenez Admission Data Admit Date/Time: 12/29/23 23:33 Attending Provider: Charlene Jimenez Admit Provider: Charlene Jimenez Primary Care Provider: Batsheva Looney Coding Level of Care Code 26585 D/C day mgmt > 30 min Diagnoses Major depression with psychotic features F32.3 Suicidal ideations R45.851 Multiple sclerosis G35 Paranoid F22
[2024-01-07 11:46] VITALS: BP 121/80; PULSE 72
== END 2024-01-07 13:00 | disposition home or self-care (01) | DRG 885 ==
LOC: ED 15:20 → 3S 23:30
DX: G35 Multiple sclerosis; G47.00 Insomnia, unspecified; R45.851 Suicidal ideations; F32.3 Major depressive disorder, single episode, severe with psychotic features; Z88.2 Allergy status to sulfonamides